=== PATIENT | female | born 1940 | race Caucasian/White ===

== ENCOUNTER 2017-05-16 14:32 | Emergency (ER) | payer MEDICARE, BC ==
--- NOTE | 2017-05-16 16:06 | RAD ---
CHEST TWO VIEW 05/16/17 HISTORY: Cough. COMPARISON: Chest two view 09/15/15. FINDINGS: There are calcified granulomas throughout the lungs. No pneumothorax. There is a nodule in the left l gabrielle base which is no well defined and likely another granuloma. Mild levoscoliosis upper thoracic spine. Moderate vascular calcifications. IMPRESSION: 1. No acute thoracic abnormality. 2. Focal area of nodularity in the left lung base may represent a granuloma. Followup radiograph s in six months is recommended. POS: [facility]
[2017-05-16 16:35] LABS: #Basophils 0.1 thou/uL (0.0-0.2); #Eosinphils 0.7 thou/uL (0.0-0.7); #Lymphocytes 1.6 thou/uL (1.20-3.40); #Monocytes 0.6 thou/uL (0.11-0.59); #Neutrophils 5.7 thou/uL (1.40-6.50); %Basophils 0.7 % (0.0-1.0); %Eosinophils 8.3 % (0.0-10.0); %Lymphocytes 17.9 % (21.0-51.0); %Monocytes 7.2 % (0.0-10.0); %Neutrophils 65.8 % (42.0-75.0); Hemoglobin 14.3 g/dL (12.0-16.0); Mean Corpuscular HGB CONC 31.5 g/dL (32.0-36.0); Mean Corpuscular Hemoglobin 30.5 pg (27.0-31.0); Mean Corpuscular Volume 96.6 fl (81.0-99.0); Mean Platelet Volume 8.5 fL (7.4-10.4); Platelet Count 203 thou/uL (130-400); RBC Distribution Width 14.1 % (11.5-14.5); Red Blood Cell (RBC) Count 4.71 mill/uL (4.20-5.40); White Blood Cell (WBC) Count 8.7 thou/uL (4.8-10.8)
[2017-05-16 16:58] LABS: ALT (SGPT) 49 U/L (8-55); AST (SGOT) 24 U/L (5-34); Albumin 3.4 g/dL (3.4-4.8); Alkaline Phosphatase 54 U/L (40-150); Anion Gap 16 mmol/L (10-20); BUN (Urea Nitrogen) 24 mg/dL (9.8-20.1); Bilirubin, Total 0.2 mg/dL (0.2-1.2); Calc. Creatinine Clearance 0 mL/min (70-130); Calcium 9.1 mg/dL (7.8-10.44); Carbon Dioxide 23 mmol/L (23-31); Chloride 109 mmol/L (98-107); Estimated GFR-MDRD 39; Globulin 3.3 g/dL (2.4-3.5); Glucose 114 mg/dL (83-110); Potassium 3.9 mmol/L (3.5-5.1); Protein, Total 6.7 g/dL (6.0-8.3); Sodium 144 mmol/L (136-145)
[2017-05-16] MEDS ORDERED: Ketorolac Tromethamine 30 MG/ML VIAL ONE (17:04)
[2017-05-16 18:34] LABS: Bilirubin Negative (Negative); Blood, Urine Negative (Negative); Clarity CLEAR (Clear); Glucose, Urine (Dipstick) Negative (Negative); Leukocyte Small (Negative); Nitrite Negative (Negative); Protein, Urine (Dipstick) Trace mg/dL (Neg-Trace); Specific Gravity, Urine 1.024 (1.002-1.036); Urobilinogen 0.2 mg/dL (0.2-1.0)
[2017-05-16 18:36] LABS: Bacteria/HPF None Seen HPF (None Seen); Hyaline Casts/LPF 0-3 HYALINE CAST LPF (0-3 Hyaline); Pathc Cast-AUWi Flag 0.27 (0-2.49); Squamous Epithelial 0-3 HPF (0-3)
[2017-05-16 18:38] LABS: RBC/HPF None Seen HPF (0-3)
== END 2017-05-16 19:04 | disposition home or self-care (01) ==
LOC: ERS 14:32
DX: N39.0 Urinary tract infection, site not specified (principal); Z79.899 Other long term (current) drug therapy
CPT/HCPCS: 71046; 80053; 81003; 81015; 85025; 87086; 87804; 96361; 96374; J1885

== ENCOUNTER 2017-07-20 10:29 | Outpatient (CLI) | payer MEDICARE, BC ==
--- NOTE | 2017-07-20 12:09 | RAD ---
THREE VIEWS LUMBAR SPINE: HISTORY: Acute low back pain without sciatica. TECHNIQUE: AP, lateral, and coned down views of the lumbar spine are obtained. FINDINGS: Images demonstrate five [id number] lumbar vertebrae. Lumbar spine vertebral bodies are unremark able. Disk spaces are well maintained. No evidence of acute fractures or bony lesions seen. IMPRESSION: Normal three views lumbar spine. POS: [facility]
== END 2017-07-20 10:30 | disposition home or self-care (01) ==
LOC: RAD 10:29
PROVIDERS: ATTEND Family Medicine
DX: M54.5 Low back pain (principal)
CPT/HCPCS: 72100

== ENCOUNTER 2017-07-31 14:07 | Outpatient (CLI) | payer MEDICARE, BC | END 2017-07-31 14:08 | disposition home or self-care (01) | LOC: BICMAMMO 14:07 | PROVIDERS: ATTEND Family Medicine | DX: M81.0 Age-related osteoporosis without current pathological fracture (principal) | CPT/HCPCS: 77080 ==

== ENCOUNTER 2017-09-24 09:13 | Emergency (ER) | payer MEDICARE, BC ==
[2017-09-24 10:47] LABS: Bilirubin Negative (Negative); Blood, Urine Negative (Negative); Glucose, Urine (Dipstick) Negative (Negative); Leukocyte Negative (Negative); Nitrite Negative (Negative); Protein, Urine (Dipstick) Negative (Neg-Trace); Urobilinogen 0.2 mg/dL (0.2-1.0)
[2017-09-24 10:48] LABS: Clarity Clear (Clear)
[2017-09-24 10:49] LABS: Specific Gravity, Urine 1.004 (1.002-1.036)
== END 2017-09-24 13:01 | disposition home or self-care (01) ==
LOC: ERS 09:13
DX: R33.9 Retention of urine, unspecified (principal)
CPT/HCPCS: 36416; 51701; 81003; 87086

== ENCOUNTER 2017-11-06 12:05 | Day surgery (SDC) | payer MEDICARE, BC ==
[2017-11-05 13:43] VITALS: BMI 18.3
[~2017-11-06 12:05] MED LIST: Lidocaine 1% PF 5 ML VIAL ONE; Ondansetron HCl/PF 4 MG/2 ML Vial ONE; PHENYLEPHRINE-NS 100 MCG/ML 10 ML SYRINGE ONE; PROPOFOL 200 MG/20 ML VIAL ONE
[2017-11-06] MEDS ORDERED: Heparin 5,000 UNITS/ML VIAL ONE (12:41)
[2017-11-06] MEDS ORDERED: CEFAZOLIN/Water 2 GM/20 ML SYRINGE ONE (12:41)
[2017-11-06] MEDS ORDERED: Fentanyl 100 MCG/2 ML VIAL ONE (12:46)
[2017-11-06] MEDS ORDERED: Gentamicin 80 MG/2 ML VIAL ONE (12:50)
[2017-11-06] MEDS ORDERED: Ophthalmic Irrigation Solution 0 ML ONE (12:50)
[2017-11-06] MEDS ORDERED: Sodium Chloride 0.9% 0 ML ONE (12:50)
[2017-11-06] MEDS ORDERED: Bupivacaine/Epinephrine 0.25% 30 ML VIAL ONE (12:50)
[2017-11-06] MEDS ORDERED: Maxitrol 0.1% Opth Oint 3.5 GM TUBE ONE (12:50)
[2017-11-06] MEDS ORDERED: Bacitracin Zinc Ointment 30 gm TUBE ONE (12:51)
[2017-11-06] MEDS ORDERED: Hydrocortisone Sod Succ/PF 100 mg/2 ml Vial ONE (13:01)
[2017-11-06] MEDS ORDERED: EPINEPHrine 1 MG/ML AMP ONE ×2 (13:36→13:44)
[2017-11-06] MEDS ORDERED: Lidocaine 1% (PF) 30 ML VIAL ONE ×2 (13:36→13:44)
[2017-11-06] MEDS ORDERED: Meperidine HCl/PF 25 MG/ML VIAL ONE (15:05)
[2017-11-06] MEDS ORDERED: Ondansetron HCl/PF 4 MG/2 ML Vial IVP PRN (15:40)
[2017-11-06] MEDS ORDERED: Meperidine HCl/PF 25 MG/ML VIAL IV PRN (15:40)
[2017-11-06] MEDS ORDERED: Promethazine HCl 25 MG/ML VIAL IM/IV PRN (15:40)
[2017-11-06] MEDS ORDERED: HYDROcodone/Acetaminophen 5/325 mg Tablet ONE (16:05)
--- NOTE | 2017-11-09 15:07 | OP ---
DATE OF PROCEDURE: 11/06/2017 PREOPERATIVE DIAGNOSES: 1. Deformity of breast reconstruction. 2. Disproportion of breast reconstruction. PROCEDURE: Bilateral fat grafting of breast reconstructions. PROCEDURE: Following induction of adequate anesthesia, the patient was prepped and draped in usual sterile fashion in supine position. Fat was harvested from her abdomen and allowed to separate. It has been previously infiltrated prior to harvesting. After it started it was decanted and then injected with a series of stab incisions radially around each breast and injected using the microdropler technique. Approximately 100 mL of fat was injected into each breast. The patient tolerated the procedure well. Stab incisions were closed with 5-0 fast gut suture. RUSSEL
== END 2017-11-06 16:48 | disposition home or self-care (01) ==
LOC: SDC 12:05
PROVIDERS: ATTEND Plastic Surgery
PROC: 0HRV37Z Replacement of Bilateral Breast with Autologous Tissue Substitute, Percutaneous Approach (ICD-10-PCS; principal; 2017-11-06)
DX: N65.1 Disproportion of reconstructed breast (principal); Z79.899 Other long term (current) drug therapy
CPT/HCPCS: 96374; A4216; J0171; J1580; J1644; J1720; J2001; J2175; J2405; J2704; J3010; J3370; J3490

== ENCOUNTER 2018-01-14 12:04 | Outpatient (CLI) | payer MEDICARE, BC | END 2018-01-14 12:05 | disposition home or self-care (01) | LOC: BICRAD 12:04 | PROVIDERS: ATTEND Family Medicine | DX: M25.552 Pain in left hip (principal); M25.551 Pain in right hip; M16.11 Unilateral primary osteoarthritis, right hip ==

== ENCOUNTER 2018-06-01 12:12 | Outpatient (CLI) | payer MEDICARE, BC ==
--- NOTE | 2018-06-01 13:39 | RAD ---
RADIOGRAPH LUMBAR SPINE 2 VIEWS: DATE: 06-01-18 HISTORY: 78-year-old female with chronic low back pain. COMPARISON: 07-20-17 FINDINGS: Five lumbar type vertebrae. No scoliosis. Alignment is normal. Moderate disc space narrowing at L4-5. The rest of the disc spaces are maintained. Facet DJD at lower levels. No interval change overall. IMPRESSION: 1. Degenerative disc changes at L4-5. 2. Facet osteoarthrosis at lower levels. 3. No interval change. SILVIA POS: [facility]
--- NOTE | 2018-06-01 13:43 | RAD ---
RADIOGRAPH RIGHT HIP ONE VIEW: 06/01/2018 HISTORY: A 78-year-old female with right hip pain. COMPARISON: 01/14/2018 TECHNIQUE: A single AP view, ordered specifically as a one view study. FINDINGS: Femoral head contour and hip joint space are maintained. No subcapital osteophytes. No fracture. M ild bony hypertrophy of the lateral aspect of the acetabular roof. No subchondral cysts. No destruc tive osseous lesion. No interval change. Mild enthesophytes at the greater trochanter, lateral edge . IMPRESSION: 1. No major pathology identified. 2. Minor findings. 3. No interval change since 01/14/2018. POS: [facility]
== END 2018-06-01 12:13 | disposition home or self-care (01) ==
LOC: BICRAD 12:12
PROVIDERS: ATTEND Internal Medicine Rheumatology
DX: M25.551 Pain in right hip (principal); M54.5 Low back pain; M51.36 Other intervertebral disc degeneration, lumbar region; M47.816 Spondylosis without myelopathy or radiculopathy, lumbar region
CPT/HCPCS: 72100

== ENCOUNTER 2018-06-24 11:59 | Outpatient (CLI) | payer MEDICARE, BC ==
--- NOTE | 2018-06-24 13:02 | RAD ---
RIGHT HIP TWO VIEWS: History: Right hip pain. Right buttock pain. FINDINGS/IMPRESSION: No fracture, dislocation, or bony destruction is seen. Mild degenerative changes are noted. POS: [facility]
--- NOTE | 2018-06-24 14:18 | RAD ---
LUMBAR SPINE 2 VIEWS: Date: 06/24/18 HISTORY: Low back pain. FINDINGS/IMPRESSION: Comparison made with exam of 06/01/18. No acute fracture or subluxation is seen. Mild degenerative changes are again noted. POS: [facility]
== END 2018-06-24 12:00 | disposition home or self-care (01) ==
LOC: BICRAD 11:59
PROVIDERS: ATTEND Family Medicine
DX: S39.92XA Unspecified injury of lower back, initial encounter (principal); M79.18 Myalgia, other site; M47.816 Spondylosis without myelopathy or radiculopathy, lumbar region; M16.11 Unilateral primary osteoarthritis, right hip
CPT/HCPCS: 72100

== ENCOUNTER 2018-07-02 13:12 | Outpatient (CLI) | payer MEDICARE, BC ==
--- NOTE | 2018-07-02 13:55 | CT ---
HEAD CT WITHOUT CONTRAST: History: Traumatic head injury. Fall. Comparison: None. FINDINGS: No parenchymal hemorrhage or extraaxial hematoma. No midline shift. Basilar cisterns are patent. Brai n volume age appropriate. Cortical connolly white matter differentiation is preserved. No evidence of hydrocephalus. There are chronic small vessel ischemic changes of white matter. Adequate aeration of the sinuses and mastoid air cells. Calvarium is intact. IMPRESSION: No intracranial post-traumatic sequellae. POS: [facility]
== END 2018-07-02 13:13 | disposition home or self-care (01) ==
LOC: BICCT 13:12
PROVIDERS: ATTEND Family Medicine
DX: S09.90XD Unspecified injury of head, subsequent encounter (principal)
CPT/HCPCS: 70450

== ENCOUNTER 2018-08-02 14:20 | Outpatient (CLI) | payer MEDICARE, BC ==
--- NOTE | 2018-08-02 15:50 | MRI ---
MRI LUMBAR SPINE WITHOUT CONTRAST: Multiplanar, multisequential imaging lumbar spine obtained. INDICATION: Low back pain. Lumbar radiculopathy to the lower extremities. FINDINGS: Lumbar vertebrae maintain normal height and alignment. Vertebral body signal appears normal. There is evidence of edema seen in lateral aspect of the sacral alae bilaterally seen on sagittal jose ges only. This raises the possibility of bilateral sacral insufficiency fractures. This is suboptim ally evaluated on this study. Disk spaces are preserved. No evidence of significant disk bulge at T12-L1 or L1-2. At L2-3, mild disk bugle flattens the thecal sac. There is facet hypertrophy. Mild central canal st enosis. At L3-4, broad-based disk bulge and facet an ligamentous hypertrophy results in mild to moderate cent ral canal stenosis. At L4-5, there is a broad-based disk bulge with small focal protrusion compressing the thecal sac. F acet and ligamentous hypertrophy. Moderate central canal stenosis. At L5-S1, mild disk bulge abuts the anterior thecal sac. Mild facet hypertrophy. Very mild central canal stenosis. IMPRESSION: 1. Moderate central canal stenosis at L4-5 with mild to moderate central canal stenosis at L3-4 as d escribed above. 2. Sagittal images show evidence of bilateral sacral edema seen on the lateral images on sagittal pl ane. This raises the possibility of sacral injury or bilateral sacral insufficiency fractures. Furt her evaluation with MRI of pelvis is recommended to better evaluate the sacrum. POS: [facility]
== END 2018-08-02 14:21 | disposition home or self-care (01) ==
LOC: BICMRI 14:20
PROVIDERS: ATTEND Family Medicine
DX: M54.16 Radiculopathy, lumbar region (principal); M48.061 Spinal stenosis, lumbar region without neurogenic claudication; R60.0 Localized edema
CPT/HCPCS: 72148

== ENCOUNTER 2018-08-16 11:12 | Outpatient (CLI) | payer MEDICARE, BC ==
--- NOTE | 2018-08-16 11:44 | RAD ---
CERVICAL SPINE 4 VIEWS: Date: 08/16/18 HISTORY: Spondylosis of cervical region without myelopathy or radiculopathy. Fall in early July with pain. FINDINGS: Extensive multilevel disc osteophytosis and facet arthrosis. No prevertebral soft tissue swelling. Th ere is no open-mouth view. There appears to be some very mild, approximately 0.2 cm anterolisthesis o f C7 on T1, but no abnormal translation between flexion and extension. IMPRESSION: Extensive cervical spondylosis. Mild anterolisthesis of C7 on T1, but no evidence for abnormal transl ation between flexion and extension. If there is clinical concern for acute cervical spine injury, follow-up CT scan should be considered. POS: [facility]
== END 2018-08-16 11:13 | disposition home or self-care (01) ==
LOC: BICRAD 11:12
PROVIDERS: ATTEND Specialist
DX: M84.48XA Pathological fracture, other site, initial encounter for fracture (principal); M47.22 Other spondylosis with radiculopathy, cervical region; M43.13 Spondylolisthesis, cervicothoracic region
CPT/HCPCS: 72050

== ENCOUNTER 2018-08-19 13:34 | Outpatient (CLI) | payer MEDICARE, BC ==
--- NOTE | 2018-08-19 14:26 | MRI ---
Cervical spine MRI without contrast: 08/19/2018 COMPARISON: None HISTORY: Cervical radiculopathy and neck pain TECHNIQUE: Multiplanar multisequence MR imaging of the cervical spine provided without contrast FINDINGS: The sagittal STIR imaging demonstrates no focal area of osseous marrow edema aside from mil d degenerative edematous endplate change to the right of midline at C5-6. C2-3: Mild bilateral facet hypertrophy. No significant central canal or neural foraminal stenosis. C3-4: Mild disc bulge with partial effacement of ventral thecal sac and mild central canal stenosis. No significant neural foraminal stenosis on the left. Probable mild right neural foraminal stenosis on the basis of uncovertebral osteophyte formation. C3-4: No central canal stenosis. Mild left neural foraminal stenosis on the basis of facet and uncove rtebral osteophyte formation. No right neural foraminal stenosis. C5-6: Degenerative endplate changes are present with disc space narrowing, disc desiccation, and ante rior osteophyte formation. There is disc bulge effacing the ventral thecal sac with moderate central canal stenosis. There is bilateral facet and uncovertebral osteophyte formation, right greate r than left. Moderate bilateral neural foraminal stenosis, right greater than left. C6-7: There is disc space narrowing disc desiccation and minimal disc bulge with mild central canal s tenosis. Bilateral facet and uncovertebral osteophyte formation, left greater than right. Moderate left and mild right neural foraminal stenosis. C7-T1: No significant central canal or neural foraminal stenosis. The imaged spinal cord demonstrates normal signal intensity. IMPRESSION: Cervical spine degenerative change as described above.
--- NOTE | 2018-08-19 15:22 | MRI ---
EXAM: CT of the chest with contrast HISTORY: Dizziness and diaphoresis; hypotension COMPARISON: None TECHNIQUE: Multiple contiguous axial images were obtained in a CT the chest with contrast. Coronal re formats were performed. FINDINGS: HEART: Normal in size without focal cardiac abnormality MEDIASTINUM: No hilar or mediastinal lymphadenopathy. Atherosclerotic calcifications are seen in the aorta and coronary arteries. There is a small hiatal hernia. LUNGS: No focal infiltrates, nodules, or masses. PLEURAL SPACE: No pneumothorax or pleural effusion. CHEST WALL SOFT TISSUES: Unremarkable OSSEOUS STRUCTURES: Degenerative changes are seen in the spine. VISUALIZED SUBDIAPHRAGMATIC STRUCTURES: Unremarkable. The patient is status post cholecystectomy. IMPRESSION: 1. No evidence of acute intrathoracic abnormality. 2. Small hiatal hernia
--- NOTE | 2018-08-19 15:50 | MRI ---
MRI OF THE PELVIS WITHOUT IV CONTRAST: INDICATION: History of fall with right hip pain. COMPARISON: CT of the pelvis dated 07/25/2014. FINDINGS: There is a 1.2 x 3.5 cm T2 hyperintense, T1 isointense blind-ending pouch that protrudes from the lef t anterolateral margin of the anus between the rectal wall and vagina. This was present on a compari son CT examination dated 07/25/2014. No acute fracture is evident. No definite enlarged lymph nodes are noted. There is a mild amount of retained stool within the colon. A small amount of fluid is seen overlying the right greater trochanter. The right gluteus medius and minimus tendons are normal appearing. The right hamstring and rectus femoris origin appears within normal limits. The visualized sciatic nerve appears within normal limits. IMPRESSION: 1. Mild trochanteric bursitis. 2. Fluid signal intensity pouch protruding from the left anterolateral margin of the rectum may refl ect a mildly prominent anal cyst or duct. There appears to be some proteinaceous material seen on th e T1 images related to this. A partially healed perianal fistula could also produce a similar appear ance. A congenital cyst (epidermoid) of the rectum is also a differential consideration. This lesio n appears relatively stable in appearance to a comparison CT from 2014. Recommend correlation for an y symptoms in and around the rectal and anal region. 3. No acute fracture demonstrated. POS: [facility]
== END 2018-08-19 13:35 | disposition home or self-care (01) ==
LOC: BICMRI 13:34
PROVIDERS: ATTEND Family Medicine
DX: M47.22 Other spondylosis with radiculopathy, cervical region (principal); M25.551 Pain in right hip; M84.48XA Pathological fracture, other site, initial encounter for fracture; M70.61 Trochanteric bursitis, right hip
CPT/HCPCS: 72141; 72195

== ENCOUNTER 2019-03-23 06:53 | Outpatient (CLI) | payer MEDICARE, BC ==
--- NOTE | 2019-03-27 16:13 | EKG ---
Test Reason : Blood Pressure : / mmHG Vent. Rate : 099 BPM Atrial Rate : 099 BPM P-R Int : 186 ms QRS Dur : 074 ms QT Int : 358 ms P-R-T Axes : 069 003 081 degrees QTc Int : 459 ms Normal sinus rhythm Possible Left atrial enlargement Cannot rule out Anteroseptal infarct , age undetermined Abnormal ECG When compared with ECG of 22-AUG-2013 06:35, Vent. rate has increased BY 50 BPM Minimal criteria for Anteroseptal infarct are now Present Questionable change in initial forces of Anterolateral leads Confirmed by DR. Kenny SNYDER ([id number]) on 03/27/2019 4:12:39 PM Referred By: ABDIRASHID Confirmed By:DR. Kenny SNYDER
== END 2019-03-23 06:54 | disposition home or self-care (01) ==
LOC: LABBT 06:53
PROVIDERS: ATTEND Neurological Surgery
DX: Z01.818 Encounter for other preprocedural examination (principal); M54.16 Radiculopathy, lumbar region
CPT/HCPCS: 93005; 93010

== ENCOUNTER 2019-06-06 22:07 | Observation (INO) | payer MEDICARE, BC ==
--- NOTE | 2019-06-06 22:48 | RAD ---
XR Chest 1 View Portable HISTORY: Chest pain COMPARISON: None. FINDINGS: Heart size and mediastinum are within normal limits. The lungs are clear of infiltrates. Jairo simone appear demineralized. IMPRESSION: No active intrathoracic disease.
[2019-06-06 22:51] LABS: #Basophils 0.1 thou/uL (0.0-0.2); #Eosinphils 0.1 thou/uL (0.0-0.7); #Lymphocytes 2.6 thou/uL (1.20-3.40); #Monocytes 0.8 thou/uL (0.11-0.59); #Neutrophils 7.2 thou/uL (1.40-6.50); %Basophils 1.3 % (0.0-1.0); %Monocytes 7.3 % (0.0-10.0); %Neutrophils 66.5 % (42.0-75.0); Hemoglobin 13.2 g/dL (12.0-16.0); Mean Corpuscular HGB CONC 32.2 g/dL (32.0-36.0); Mean Corpuscular Hemoglobin 31.7 pg (27.0-31.0); Mean Corpuscular Volume 98.4 fL (78.0-98.0); Mean Platelet Volume 8.2 fL (7.4-10.4); Platelet Count 284 thou/uL (130-400); RBC Distribution Width 12.9 % (11.5-14.5); Red Blood Cell (RBC) Count 4.15 mill/uL (4.20-5.40); White Blood Cell (WBC) Count 10.8 thou/uL (4.8-10.8)
[2019-06-06 23:11] LABS: ALT (SGPT) 63 U/L (8-55); AST (SGOT) 35 U/L (5-34); Albumin 3.7 g/dL (3.4-4.8); Alkaline Phosphatase 97 U/L (40-110); Anion Gap 10 mmol/L (10-20); BUN (Urea Nitrogen) 39 mg/dL (9.8-20.1); Bilirubin, Total 0.3 mg/dL (0.2-1.2); Calc. Creatinine Clearance 0 mL/min (70-130); Calcium 9.5 mg/dL (7.8-10.44); Carbon Dioxide 27 mmol/L (23-31); Chloride 104 mmol/L (98-107); Estimated GFR-MDRD 27; Globulin 3.4 g/dL (2.4-3.5); Glucose 134 mg/dL (83-110); Potassium 4.3 mmol/L (3.5-5.1); Protein, Total 7.1 g/dL (6.0-8.3); Sodium 137 mmol/L (136-145)
[2019-06-06 23:40] LABS: CKMB 1.5 ng/mL (0-6.6)
[2019-06-06] MEDS ORDERED: Aspirin Chewable 81 MG TAB ONE (23:46)
[2019-06-07] MEDS ORDERED: Ondansetron PF 4 MG/2 ML Vial IVP PRN ×2 (01:22→06:34)
[2019-06-07] MEDS ORDERED: Ondansetron ODT 4 MG TAB SL PRN (01:22)
[2019-06-07 02:22] VITALS: BMI 17.2
[2019-06-07 02:33] LABS: Troponin I 0.049 ng/mL (< 0.028)
[2019-06-07 05:19] LABS: Troponin I 0.043 ng/mL (< 0.028)
[2019-06-07] MEDS ORDERED: Nitroglycerin 0.4 MG TAB (25 Tab Bottle) PO PRN (06:25)
[2019-06-07] MEDS ORDERED: Dextrose 5 %-0.45 % NaCl 1,000 ML IV SCH (06:30)
[2019-06-07] MEDS ORDERED: Acetaminophen 325 MG TAB PO PRN (06:34)
[2019-06-07] MEDS ORDERED: Calcium Carbonate 500 MG ChewTAB PO PRN (06:34)
[2019-06-07] MEDS ORDERED: Ondansetron ODT 4 MG TAB PO PRN (06:34)
--- NOTE | 2019-06-07 07:52 | HP ---
PRIMARY CARE PHYSICIAN: Patricia Quezada MD CHIEF COMPLAINT: Chest discomfort. HISTORY OF PRESENT ILLNESS: The patient is a 79-year-old female with hypertension, presented to the emergency room with chest discomfort. The chest discomfort started approximately 12 hours ago. It was substernal, pressure-like, along with some nausea and lightheadedness. She denies any aggravating or relieving factor. The pain resolved prior to arrival to the emergency room. She denies recent immobilization, travel, fever, chills, or syncope. The patient is scheduled for lumbar surgery on June 08. She denies any cough, wheezing, orthopnea, or paroxysmal nocturnal dyspnea. In the emergency room, her initial vital signs showed temperature 98.2, respirations of 19, pulse rate of 86 with a blood pressure of 136/107 with O2 saturation of 97% on room air. EKG showed sinus rhythm with left ventricular hypertrophy and left axis deviation. She received IV fluids in the emergency room. She received aspirin by EMS. PAST MEDICAL HISTORY: 1. Hypertension. 2. Hyperlipidemia. 3. Tachyarrhythmias. 4. History of collagenous colitis. 5. History of falls. 6. Generalized tremors. 7. Chronic insomnia. 8. History of trochanteric bursitis. 9. Osteoporosis. PAST SURGICAL HISTORY: 1. Tonsillectomy at age of 7. 2. Partial hysterectomy in 1964. 3. Bilateral oophorectomy in 1971. 4. Breast implant in 1973 with an implant change in 1981. 5. Bladder repair x2. 6. Breast reconstruction in 2018. ALLERGIES: THE PATIENT IS ALLERGIC TO ADHESIVES. CURRENT HOME MEDICATIONS: 1. Amitriptyline 25 mg at bedtime. 2. Vitamin D3 of 400 units daily. 3. Vitamin B12 of 1000 mcg daily. 4. Estrogen 1.25 mg daily. 5. Folic acid daily. 6. Flagyl application daily. 7. Multivitamin one tablet daily. 8. Protonix 40 mg daily. 9. Inderal 20 mg b.i.d. 10. Simvastatin 10 mg at bedtime. 11. Tizanidine 2 mg b.i.d. 12. Ambien as needed. SOCIAL HISTORY: The patient currently lives at home with her family. She denies current use of smoking, alcohol, or drug use. She quit smoking in 2006. She is . She makes her own decision with the help of her family. FAMILY HISTORY: Colon cancer in a mother. REVIEW OF SYSTEMS: All other review of systems was reviewed and was found negative. PHYSICAL EXAMINATION: VITAL SIGNS: As discussed above. GENERAL: A 79-year-old female, in no apparent distress. Denies any chest discomfort at this time. HEENT: Head; atraumatic and normocephalic. Sclerae are anicteric. Moist mucous membranes. No oral lesion. NECK: Supple. No JVD appreciated. No carotid bruit. LUNGS: Clear to auscultation bilaterally. No wheezing, rales, or rhonchi. HEART: S1 and S2 present. Regular rate and rhythm. No rubs or gallops. ABDOMEN: Soft, nontender. Bowel sounds present. No rebound or guarding. No costovertebral angle tenderness. EXTREMITIES: No edema or calf tenderness. NEUROLOGY: Grossly nonfocal. Moves all 4 extremities. PSYCHIATRY: Alert, awake, and oriented x3. Normal affect. LYMPH NODES: No palpable lymph nodes in the neck. PERIPHERAL VASCULAR: Radial pulses palpable bilaterally. MUSCULOSKELETAL: No joint swelling or tenderness. LABORATORY FINDINGS: CBC showed WBC 10.8 with hemoglobin 13.2, hematocrit 40.8, and platelet count of 284. Chemistry showed sodium 137, potassium 4.3, chloride 104, bicarb 27, BUN 39, and creatinine 1.83. AST of 35, ALT of 63. Troponin of 0.050 with normal CK-MB. Lipase was 21. IMAGING STUDIES: EKG by my review as discussed above. Chest x-ray by my review was negative for infiltrate or edema. IMPRESSION: 1. Chest discomfort along with lightheadedness and nausea, rule out acute coronary syndrome. 2. Elevated troponins probably secondary to demand ischemia. 3. Acute kidney injury on chronic kidney disease, stage 3, probably secondary to poor oral intake. 4. Slightly abnormal LFTs of unclear etiology. 5. Degenerative joint disease. 6. Tachyarrhythmia, on beta-blockers. 7. Hypertension. 8. Hyperlipidemia. 9. Generalized tremors. 10. Chronic insomnia. 11. Osteoporosis. PLAN: The patient will be monitored in the telemetry unit as observation. A stress test will be obtained. The patient is scheduled for lumbar surgery tomorrow. She received aspirin in the emergency room. We will notify Surgical Service. We will resume her home medications. The patient understands the above plan of care. Job ID: [id number]
[2019-06-07] MEDS: tiZANidine HCl 4 MG TAB PO SCH ×2 (08:41→20:23)
[2019-06-07] MEDS: Propranolol 10 MG TAB PO SCH (08:48)
--- NOTE | 2019-06-07 14:03 | NM ---
EXAM: Nuclear medicine cardiac perfusion examination with rest only HISTORY: Chest pain TECHNIQUE: Rest only images were obtained. The patient was unable to perform the stress images secondary to hypo tension. Rest images: 9.4 mCi technetium 99m sestamibi COMPARISON: None FINDINGS: Tomographic images: No perfusion defects. IMPRESSION: No perfusion defects seen at rest
[2019-06-07 16:42] LABS: ALT (SGPT) 44 U/L (8-55); AST (SGOT) 25 U/L (5-34); Alkaline Phosphatase 79 U/L (40-110); Anion Gap 10 mmol/L (10-20); BUN (Urea Nitrogen) 22 mg/dL (9.8-20.1); Bilirubin, Total 0.3 mg/dL (0.2-1.2); Calc. Creatinine Clearance 26 mL/min (70-130); Calcium 7.9 mg/dL (7.8-10.44); Carbon Dioxide 25 mmol/L (23-31); Chloride 107 mmol/L (98-107); Estimated GFR-MDRD 45; Glucose 117 mg/dL (83-110); Potassium 4.7 mmol/L (3.5-5.1); Sodium 137 mmol/L (136-145)
[2019-06-07] MEDS: Dextrose 5 % And 0.9 % NaCl 1,000 ML IV SCH (19:40)
[2019-06-08 05:14] LABS: ALT (SGPT) 49 U/L (8-55); AST (SGOT) 29 U/L (5-34); Albumin 3.1 g/dL (3.4-4.8); Alkaline Phosphatase 86 U/L (40-110); Anion Gap 12 mmol/L (10-20); BUN (Urea Nitrogen) 16 mg/dL (9.8-20.1); Bilirubin, Total 0.2 mg/dL (0.2-1.2); Calc. Creatinine Clearance 31 mL/min (70-130); Calcium 8.1 mg/dL (7.8-10.44); Carbon Dioxide 21 mmol/L (23-31); Chloride 111 mmol/L (98-107); Estimated GFR-MDRD 54; Globulin 3.1 g/dL (2.4-3.5); Glucose 88 mg/dL (83-110); Magnesium 1.7 mg/dL (1.6-2.6); Potassium 4.6 mmol/L (3.5-5.1); Protein, Total 6.2 g/dL (6.0-8.3); Sodium 139 mmol/L (136-145)
[2019-06-08] MEDS: Dextrose 5 % And 0.9 % NaCl 1,000 ML IV SCH ×2 (08:41→22:32)
[2019-06-08] MEDS: tiZANidine HCl 4 MG TAB PO SCH ×2 (08:42→20:28)
[2019-06-08] MEDS ORDERED: Sodium Chloride 0.9% 1,000 ML IV SCH (09:15)
[2019-06-08] MEDS ORDERED: Communication Order-Pharmacy FS SCH (09:15)
--- NOTE | 2019-06-08 09:26 | PDOC.HOSPP ---
- Subjective Encounter Date: 06/08/19 Encounter Time: 09:20 Subjective: f/u for CP and hypotension. Unable to complete nuclear stress test due to hypotension. Pt also orthostatic receiving IVF's currently. Plan for heart cath this am. - Objective Vital Signs & Weight: Vital Signs (12 hours) Temp Pulse Resp BP BP Pulse Ox 06/08/19 07:40 97.3 F L 83 16 137/65 97 06/08/19 05:30 98.5 F 77 16 153/67 H 95 06/07/19 23:00 98.4 F 81 20 92/54 L 100 Weight Admit Weight 94 lb 3.2 oz Weight 94 lb 3.2 oz I&O: 06/07/19 06/08/19 06/09/19 06:59 06:59 06:59 Intake Total 2390 Balance 2390 Result Diagrams: 06/06/19 22:44 06/08/19 04:25 Additional Labs: Laboratory Tests 06/06/19 06/06/19 06/07/19 22:44 22:44 01:37 Creatinine 1.83 H Troponin I 0.050 H 0.049 H TSH 3rd Generation 06/07/19 06/07/19 06/08/19 04:31 16:03 04:25 Creatinine 1.17 H Troponin I 0.043 H TSH 3rd Generation [id number] Radiology Reviewed by me: Yes (SPECT cardiac image - no perfusion defect at rest ) EKG Reviewed by me: Yes (Tele - SR) Hospitalist ROS - Medication Medications: Active Medications Generic Name Dose Route Start Last Admin Trade Name Freq PRN Reason Stop Dose Admin Acetaminophen 650 mg 06/07/19 06:34 06/07/19 20:27 Tylenol PO 650 mg Q4H PRN Administration Headache/Fever/Mild Pain (1-3) Calcium Carbonate 1,000 mg 06/07/19 06:34 06/07/19 21:51 Tums PO 1,000 mg Q4H PRN Administration Heartburn or Indigestion Dextrose/Sodium Chloride 1,000 mls @ 75 mls/hr 06/07/19 18:30 06/08/19 08:41 D5 0.9% Ns IV 1,000 mls .[id number] DESMOND Administration Pantoprazole Sodium 40 mg 06/07/19 09:00 06/08/19 08:42 Protonix PO 40 mg DAILY DESMOND Administration Propranolol HCl 20 mg 06/07/19 09:00 06/07/19 08:48 Inderal PO Not Given BID DESMOND Tizanidine HCl 2 mg 06/07/19 09:00 06/08/19 08:42 Zanaflex PO 2 mg BID DESMOND Administration - Exam General Appearance: NAD, awake alert Eye: PERRL, anicteric sclera ENT: normocephalic atraumatic, no oropharyngeal lesions Neck: supple, symmetric, no JVD, no thyromegaly Heart: RRR, no murmur, no gallops, no rubs, normal peripheral pulses Respiratory: CTAB, no wheezes, no rales, no ronchi Gastrointestinal: soft, non-tender, non-distended, normal bowel sounds Extremities: no cyanosis, no clubbing, no edema Skin: normal turgor, no lesions Neurological: cranial nerve grossly intact, no new deficit Musculoskeletal: normal tone, normal strength Psychiatric: normal affect, A&O x 3 Hosp A/P (1) Chest pain Code(s): R07.9 - CHEST PAIN, UNSPECIFIED Status: Acute Plan: Concern for angina given elevated troponin and hypotension, plan for cardiac cath today, continue ASA (2) NSTEMI (non-ST elevated myocardial infarction) Code(s): I21.4 - NON-ST ELEVATION (NSTEMI) MYOCARDIAL INFARCTION Status: Acute Plan: ? demand ischemia Type II, heart cath this am (3) PIPER (acute kidney injury) Code(s): N17.9 - ACUTE KIDNEY FAILURE, UNSPECIFIED Status: Acute Plan: Improved with IVF's, avoid nephrotoxic meds (4) Orthostatic hypotension Code(s): I95.1 - ORTHOSTATIC HYPOTENSION Status: Acute Plan: Likely iatrogenic in combination with dehydration, continue IVF's - Plan plan discussed w/ family, out of bed/ambulate, DVT proph w/SCDs Stable currently Plan for heart cath this am Hold BP meds Continue IVF's Hold lumbar surgery until cardiac work up completed AM lab: BMP
--- NOTE | 2019-06-08 11:41 | CON ---
DATE OF CONSULTATION: REASON FOR CONSULTATION: Chest pain and presyncope. HISTORY OF PRESENT ILLNESS: Ms. Nguyen is a 79-year-old woman, whom I saw and evaluated in December of 2018 for a lower extremity pain. The patient at that time underwent a lower extremity arterial duplex and was not found to have significant vascular disease. She has not been seen or evaluated since that time. She recently presented with chest pain. States it lasts for seconds to minutes. She did have associated presyncope. Her daughter, who was in the other room, heard her fall. No nausea, vomiting, or other associated symptoms were present. CURRENT MEDICATIONS: Include estrogen, pantoprazole, calcitonin, multivitamin, simvastatin, folic acid, vitamin B, amitriptyline, minocycline, Ambien, and propranolol. PAST MEDICAL HISTORY: Hyperlipidemia, collagenous colitis, tremors, insomnia, and osteoporosis. PAST SURGICAL HISTORY: Breast surgery, bladder surgery, neck surgery, appendectomy, and hysterectomy. REVIEW OF SYSTEMS: A 10-point review of systems is reviewed and as above, otherwise negative. PHYSICAL EXAMINATION: GENERAL: Patient is a pleasant woman, who is in no acute distress. The patient appears their stated age. VITAL SIGNS: Blood pressure 153/67, pulse 83, and temperature 97.3. NEUROLOGIC: The patient is alert and oriented x3 with no focal neurologic deficits. HEENT: Sclerae without icterus. Mouth has moist mucous membranes with normal pallor. NECK: No JVD. Carotid upstroke brisk. No bruits bilaterally. LUNGS: Clear to auscultation with unlabored respirations. BACK: No scoliosis or kyphosis. CARDIAC: Regular rate and rhythm with normal S1 and S2. No S3 or S4 noted. No significant rubs, murmurs, thrills, or gallops noted throughout the precordium. PMI is not displaced. There is no parasternal heave. ABDOMEN: Soft, nontender, nondistended. No peritoneal signs present. No hepatosplenomegaly. No abnormal striae. EXTREMITIES: 2+ femoral and 2+ dorsalis pedis pulses. No cyanosis, clubbing, or edema. SKIN: No gross abnormalities. LABORATORY DATA: Troponin in the indeterminate range estimated at 0.049. Initial creatinine 1.83, now down to 0.99. EKG; normal sinus rhythm, normal EKG. IMPRESSION: 1. Chest pressure. 2. Risk factors for coronary artery disease. 3. Preoperative clearance. RECOMMENDATIONS: Ms. Nguyen did undergo a noninvasive stress study and could not complete the 2nd part due to significant hypotension. I did discuss with the patient either repeating the study or proceeding with coronary angiography. Given the above, she agrees to proceed with coronary angiography. I discussed procedure in full detail with Ms. Nguyen. Risks included, not limited to the following: , stroke, NH, need for emergency surgery, loss of limb, bleeding, and infection, as well as a reaction to the dye causing kidney failure and needing long-term dialysis. I also discussed the risks of PCI to include all of the above including coronary dissection and perforation in addition to acute stent thrombosis and restenosis. All questions were answered. Given the above, the patient agreed to proceed with above procedure. I also discussed drug coated versus nondrug stent placement. There were no contraindications to drug coated stent placement. We will proceed if needed. Job ID: [id number]
[2019-06-08] MEDS ORDERED: Zolpidem Tartrate 5 MG TAB PO PRN (15:36)
[2019-06-08] MEDS: metroNIDAZOLE 45 GM TUBE TOP SCH (20:29)
[2019-06-08] MEDS ORDERED: Amitriptyline HCl 25 MG TAB PO SCH (21:00)
[2019-06-08] MEDS ORDERED: Simvastatin 5 MG TAB PO SCH (21:00)
[2019-06-09] MEDS ORDERED: Sodium Chloride 0.9% 1,000 ML IV SCH ×2 (00:01→08:30)
[2019-06-09 05:27] LABS: Cardiac Risk 5.9 (Less than 4.5)
[2019-06-09] MEDS ORDERED: Lidocaine 1% (PF) 30 ML VIAL ONE (07:23)
[2019-06-09] MEDS ORDERED: Heparin (Artline) 1,000 ML ONE (07:23)
[2019-06-09] MEDS ORDERED: Fentanyl 100 MCG/2 ML VIAL ONE (07:51)
[2019-06-09] MEDS ORDERED: Midazolam HCl 2 mg/2 ml Vial ONE (07:52)
[2019-06-09] MEDS ORDERED: Verapamil 5 MG/2 ML VIAL ONE (07:52)
[2019-06-09] MEDS ORDERED: Nitroglycerin 100MG/250ML BOT 0 ML ONE (07:52)
[2019-06-09] MEDS ORDERED: Heparin 10,000 UNITS/1 ML VIAL ONE (07:52)
[2019-06-09] MEDS ORDERED: Acetaminophen/Codeine 30-300mg Tablet PO PRN ×2 (08:25)
[2019-06-09] MEDS ORDERED: Nitroglycerin 0.4 MG TAB (25 Tab Bottle) SL PRN (08:25)
[2019-06-09] MEDS ORDERED: Sodium Chloride 0.9% 200 ML IV PRN (08:25)
[2019-06-09] MEDS ORDERED: Folic Acid 1 MG TAB PO SCH (09:00)
[2019-06-09] MEDS ORDERED: Cholecalciferol (Vitamin D3) 400 UNITS TAB PO SCH (09:00)
[2019-06-09] MEDS ORDERED: Multivit, Therapeutic 1 TAB PO SCH (09:00)
[2019-06-09] MEDS ORDERED: Non-Formulary Item 1 EACH (Glucosam/Chondr-Msm1/D3/C/Mang [Glucosamine Chondroitin Comple PO SCH (09:00)
[2019-06-09] MEDS ORDERED: TESTOSTERONE PO SCH (09:00)
[2019-06-09] MEDS ORDERED: ESTROGEN ESTER PO SCH (09:00)
[2019-06-09] MEDS ORDERED: Cyanocobalamin (Vitamin B-12) 1,000 MCG TAB PO SCH (09:00)
[2019-06-09] MEDS: tiZANidine HCl 4 MG TAB PO SCH (09:43)
[2019-06-09] MEDS: Propranolol 10 MG TAB PO SCH (09:43)
[2019-06-09] MEDS: metroNIDAZOLE 45 GM TUBE TOP SCH (09:43)
[2019-06-09] MEDS: Dextrose 5 % And 0.9 % NaCl 1,000 ML IV SCH (10:12)
[2019-06-09 12:38] VITALS: BP 101/54; TEMP 97.7
[2019-06-09] MEDS ORDERED: Iopamidol 370 76% 100 ML VIAL ONE (14:00)
--- NOTE | 2019-06-09 19:07 | DIS ---
DATE OF ADMISSION: 06/07/2019 DATE OF DISCHARGE: 06/09/2019 DISCHARGE DIAGNOSES: 1. Chest pain, questionable coronary vasospasm, resolved. 2. Coronary artery disease, minimal. 3. Non-ST elevation myocardial infarction, type 2 secondary to demand ischemia and hypertension. 4. Acute kidney injury, resolved. 5. Orthostatic hypotension, resolved. CONSULTATIONS: Dr. Thompson with Cardiology Service. PERTINENT LABORATORY AND X-RAY FINDINGS: Creatinine ranged between 0.99 to 1.83. Estimated GFR ranged between 27 to 54. Magnesium level 1.7. Troponin I ranged between 0.043 to 0.050. Total cholesterol 199, triglycerides 105, HDL 34, and LDL 144. TSH 2.57. Portable chest x-ray dated 06/06/2019, showed no acute cardiopulmonary process. Cardiolite perfusion scan dated 06/07/2019, showed no perfusion defects on resting imaging. 2D transthoracic echocardiogram dated 06/08/2019, showed ejection fraction of 55% to 60%. Diastolic dysfunction. Redundant mitral valve leaflets without prolapse. Cardiac catheterization dated 06/09/2019, showed minimal coronary artery disease. HOSPITAL COURSE: The patient was observed on the telemetry unit after initially presenting with chest pain and hypertension. The patient underwent serial cardiac biomarkers, which were elevated x3. The patient proceeded to cardiac SPECT perfusion scan showing negative findings on resting images; however, the patient developed hypotensive episode, which precluded continuation of the stress test. Due to patient's elevated troponins and concern for underlying cardiac ischemia, the patient underwent cardiac catheterization on 06/09/2019, showing minimal coronary artery disease. Recommendations are to continue aspirin 81 mg daily and simvastatin 5 mg at bedtime. The patient remained clinically stable during the hospital course, tolerating regular oral intake with current stable vital signs. I have examined the patient at the time of discharge and discussed followup instructions. The patient verbalized understanding and in agreement and ready for discharge on 06/09/2019. DISCHARGE MEDICATIONS: 1. Enteric-coated aspirin 81 mg p.o. daily. 2. Amitriptyline 25 mg p.o. at bedtime. 3. Vitamin D3 of 400 units p.o. daily. 4. Vitamin B12 of 1000 mcg p.o. daily. 5. Estrogen/testosterone 1.25 mg/2.5 mg one tablet p.o. daily. 6. Glucosamine one tablet p.o. daily. 7. Folic acid 0.4 mg p.o. daily. 8. Metronidazole one application topically b.i.d. p.r.n. 9. Multivitamin one tablet p.o. daily. 10. Protonix 40 mg p.o. daily. 11. Propranolol 20 mg p.o. b.i.d. 12. Simvastatin 10 mg p.o. at bedtime. 13. Tizanidine 2 mg p.o. b.i.d. p.r.n. 14. Ambien 10 mg p.o. at bedtime p.r.n. FOLLOWUP: The patient may follow up with her primary care provider, Dr. Patricia Quezada, within 7 days of discharge. CONDITION ON DISCHARGE: Stable. ACTIVITY: Ad-nicole. DIET: Heart healthy. CODE STATUS: Full. DISPOSITION: Home on 06/09/2019. Job ID: [id number]
== END 2019-06-09 15:37 | disposition home or self-care (01) ==
LOC: ERS 22:07 → 2SW 06-07 01:21
PROVIDERS: ADMIT Internal Medicine; ATTEND Internal Medicine
PROC: 4A023N7 Measurement of Cardiac Sampling and Pressure, Left Heart, Percutaneous Approach (ICD-10-PCS; principal; 2019-06-09)
PROC: B2111ZZ Fluoroscopy of Multiple Coronary Arteries using Low Osmolar Contrast (ICD-10-PCS; 2019-06-09)
DX: I25.10 Atherosclerotic heart disease of native coronary artery without angina pectoris (principal); I12.9 Hypertensive chronic kidney disease with stage 1 through stage 4 chronic kidney disease, or unspecified chronic kidney disease; N18.3 Chronic kidney disease, stage 3 (moderate); N17.9 Acute kidney failure, unspecified; I21.A1 Myocardial infarction type 2; I95.1 Orthostatic hypotension; E78.5 Hyperlipidemia, unspecified; G25.2 Other specified forms of tremor; G47.00 Insomnia, unspecified; M81.0 Age-related osteoporosis without current pathological fracture; M19.90 Unspecified osteoarthritis, unspecified site; R79.89 Other specified abnormal findings of blood chemistry; Z87.891 Personal history of nicotine dependence; Z79.899 Other long term (current) drug therapy; Z91.048 Other nonmedicinal substance allergy status
CPT/HCPCS: 71045; 76942; 78451; 80053 ×3; 80061; 82553; 83690; 83735; 84443; 84484 ×3; 85025; 93005; 93306; 93458; 94760 ×3; 96360; 96361 ×3; 97139 ×2; A9500; C1769; G0378 ×4; 36415; 99152; J1644; J2001; J2250; J3010; Q9967

== ENCOUNTER 2019-07-26 11:35 | Outpatient (CLI) | payer MEDICARE, BC ==
--- NOTE | 2019-07-26 12:17 | RAD ---
CERVICAL SPINE SERIES 3 VIEWS: HISTORY: Neck pain. FINDINGS: Vertebral bodies are normal in height. Severe degenerative disk narrowing at C5-6 and C6-7. There a re also moderate degenerative facet changes present. IMPRESSION: Marked arthritic changes of the lower cervical spine. POS: TPC
== END 2019-07-26 11:36 | disposition home or self-care (01) ==
LOC: BICRAD 11:35
PROVIDERS: ATTEND Family Medicine
DX: M54.2 Cervicalgia (principal); M46.92 Unspecified inflammatory spondylopathy, cervical region
CPT/HCPCS: 72040

== ENCOUNTER 2019-10-31 06:20 | Outpatient (CLI) | payer MEDICARE, BC, OTHER ==
[2019-11-01 13:47] LABS: SARS-CoV-2 MS2 Positive; SARS-CoV-2 N Gene Negative; SARS-CoV-2 S Gene Negative; SARS-CoV-2 orf1ab Negative
== END 2019-10-31 06:21 | disposition home or self-care (01) ==
LOC: LABBT 06:20
PROVIDERS: ATTEND Neurological Surgery
DX: Z01.812 Encounter for preprocedural laboratory examination (principal); Z11.59 Encounter for screening for other viral diseases; M54.12 Radiculopathy, cervical region
CPT/HCPCS: 87635; U0003

== ENCOUNTER 2019-11-02 07:01 | Day surgery (SDC) | payer MEDICARE, BC ==
[2019-10-28 12:57] VITALS: BMI 17.9
--- NOTE | 2019-11-01 15:35 | HP ---
HISTORY OF PRESENT ILLNESS: Ms. Nguyen is a very pleasant 79-year-old woman, who is known to us for prior evaluation and actually planned surgery for lumbar spinal issue, which she still has to this day, but needed to cancel secondary to an eye problem. Over that time course, she has actually developed a secondary problem, which is more severe, which fits cervical radiculopathy, neck pain, and bilateral upper extremity pain that fits a combination of both C6 and C7 discomfort. She has been treating this with pain medications and with injections with Dr. Cox's office. Unfortunately, they have not completely relieved her symptoms and she continues to struggle quite significantly with her pains. PAST MEDICAL HISTORY: Significant for no major medical problems. MEDICATIONS: No medications listed. ALLERGIES: NO KNOWN DRUG ALLERGIES. PHYSICAL EXAMINATION: The patient is alert and oriented x3. Cervical range of motion is restricted. Bilateral upper extremity strength is equal. DIAGNOSTIC STUDIES: MRI of the cervical spine reveals foraminal stenosis of ggwajips-oq-nwxfek quality at C5-C6 and C6-C7 matching her symptoms well. ASSESSMENT: Cervical radiculopathy. PLAN: Dr. Andersen met with the patient, reviewed imaging, and advocated for a C5 through C7 ACDF. He explained to the patient the risks, benefits, and alternatives to the procedure. The patient expressed understanding and elected to move forward with surgery as discussed. I do believe that the patient is mentally competent and capable of making medical decisions for herself. We will move forward with surgery as planned. Job ID: [id number]
[2019-11-02] MEDS ORDERED: EPINEPHrine 1 MG/ML AMP ONE (07:48)
[2019-11-02] MEDS ORDERED: Thrombin 5000 UNITS/5 ML VIAL ONE (07:48)
[2019-11-02] MEDS ORDERED: Bupivacaine PF 0.5% 30 ML VIAL ONE (07:48)
[2019-11-02] MEDS ORDERED: Fentanyl 100 MCG/2 ML VIAL ONE ×3 (08:59→11:20)
[2019-11-02] MEDS ORDERED: SUGAMMADEX SODIUM 200 MG/2 ML VIAL ONE (10:01)
--- NOTE | 2019-11-02 10:49 | OP ---
DATE OF PROCEDURE: 11/02/2019 RN EMERGENCY: Deangelo Kwok PA-C. INDICATION: Pain. DIAGNOSIS: Cervical radiculopathy. PROCEDURE PERFORMED: Anterior cervical diskectomy and fusion, C6-C7. ANESTHESIA: General. DESCRIPTION OF PROCEDURE: The patient was brought into the operating room and placed under general anesthesia. She was placed on table in a supine position. A transverse incision was planned over the lateral aspect of the neck on the right. After prepping and draping and after an appropriate preoperative pause, the incision was created. The underlying platysma muscles were identified and incised. The blunt tissue plane anterior to the sternocleidomastoid muscle was used to gain access to the prevertebral space. Self-retaining retractors were placed in the wound for optimal exposure. After confirming the appropriate level with C-arm fluoroscopy, an annulotomy was performed at the C6-C7 disk space. All disk material as well as anterior and posterior osteophytes were removed. After completing the decompression, a 6-mm lordotic PEEK cage packed with allograft and autograft material were placed within the interbody space. An anterior cervical plate was then fashioned to the front of the spine and secured with a total of 4 fixed screws. Midline and lateral structures were inspected and found to be free from significant trauma. The wound was irrigated. Hemostasis was maintained throughout. The wound was then closed in anatomic layers and a pressure dressing was applied. There were no known procedural complications. Job ID: [id number]
[2019-11-02] MEDS ORDERED: Rocuronium Bromide 10 MG/ML (10ML VIAL) ONE (11:54)
[2019-11-02] MEDS ORDERED: PROPOFOL 200 MG/20 ML VIAL ONE (11:54)
[2019-11-02] MEDS ORDERED: Dexamethasone 20 MG/5 ML VIAL ONE (11:54)
[2019-11-02] MEDS ORDERED: Ondansetron PF 4 MG/2 ML Vial ONE (11:54)
[2019-11-02] MEDS ORDERED: Lidocaine 1% PF 5 ML VIAL ONE (11:54)
[2019-11-02] MEDS ORDERED: tiZANidine HCl 4 MG TAB ONE (12:28)
== END 2019-11-02 13:30 | disposition home or self-care (01) ==
LOC: SDC 07:01
PROVIDERS: ATTEND Neurological Surgery
PROC: 0RG10A0 Fusion of Cervical Vertebral Joint with Interbody Fusion Device, Anterior Approach, Anterior Column, Open Approach (ICD-10-PCS; principal; 2019-11-02)
PROC: 0RT30ZZ Resection of Cervical Vertebral Disc, Open Approach (ICD-10-PCS; 2019-11-02)
DX: M54.12 Radiculopathy, cervical region (principal); M48.02 Spinal stenosis, cervical region; E78.5 Hyperlipidemia, unspecified; M81.0 Age-related osteoporosis without current pathological fracture; L71.9 Rosacea, unspecified; Z79.899 Other long term (current) drug therapy; Z91.048 Other nonmedicinal substance allergy status
CPT/HCPCS: 76000; C1776; J0171; J0690; J1100; J2001; J2405; J2704; J3010; S0020

== ENCOUNTER 2019-12-02 10:28 | Outpatient (CLI) | payer MEDICARE, BC ==
--- NOTE | 2019-12-02 11:37 | CT ---
CT HEAD WITHOUT IV CONTRAST COMPARISON: 07/02/2018 HISTORY: Headache and head pressure when laying down. Patient fell and hit head one year ago. TECHNIQUE: Axial CT imaging at 5 mm intervals from vertex through skull base without contrast FINDINGS: There is decreased attenuation in the periventricular white matter which is nonspecific but likely re flective of chronic small vessel ischemic changes. There is mild cerebral volume loss. The ventricular system is normal in size, shape, and position for the degree of sulcal atrophy. There is no evidence of an acute infarction, hemorrhage, mass effect, or midline shift. Visualized paranasal sinuses are clear. Osseous structures appear intact. CT head is stable compared to prior exam. IMPRESSION: 1. Stable CT head without acute intracranial abnormality demonstrated. 2. Chronic small vessel ischemic changes and cerebral volume loss.
== END 2019-12-02 10:29 | disposition home or self-care (01) ==
LOC: TBSIIMAG 10:28
PROVIDERS: ATTEND Neurological Surgery
DX: R51 Headache (principal); G93.89 Other specified disorders of brain
CPT/HCPCS: 70450

== ENCOUNTER 2020-01-14 16:17 | Inpatient (IN) | payer MEDICARE, BC, OTHER ==
[2020-01-14] MEDS ORDERED: Acetaminophen 500 MG TAB ONE (16:54)
[2020-01-14 17:38] LABS: Hemoglobin 13.9 g/dL (12.0-16.0); Mean Corpuscular HGB CONC 31.8 g/dL (32.0-36.0); Mean Corpuscular Hemoglobin 31.2 pg (27.0-31.0); Mean Corpuscular Volume 98.1 fL (78.0-98.0); Mean Platelet Volume 9.4 fL (7.4-10.4); Platelet Count 250 thou/uL (130-400); Red Blood Cell (RBC) Count 4.44 mill/uL (4.20-5.40); White Blood Cell (WBC) Count 27.9 thou/uL (4.8-10.8)
[2020-01-14 17:55] LABS: Band 22 % (5-11); Lymphocytes 6 % (21-51); MDiff Complete? YES; Monocytes 5 % (0-10); Neutrophil 67 % (42-75); Platelet Morphology Comment Appears Adequate; RBC Morphology Normal; Vacuoles SLIGHT
[2020-01-14 17:55] LABS: Bacteria/HPF 4+ HPF (None Seen); Bilirubin Negative (Negative); Blood, Urine 3+ (Negative); Clarity Turbid (Clear); Glucose, Urine (Dipstick) Normal (Negative); Ketone, Urine Negative (Negative); Leukocyte 500 Leu/uL (Negative); Nitrite Negative (Negative); Protein, Urine (Dipstick) 50 mg/dL (Neg-Trace); RBC/HPF 21-50 HPF (0-3); Specific Gravity, Urine 1.014 (1.002-1.036); Urobilinogen Normal mg/dL (Less than 2); WBC/HPF Greater than 50 HPF (0-3); pH, Urine 6.5 (5.0-9.0)
[2020-01-14 17:56] LABS: ALT (SGPT) 25 U/L (8-55); AST (SGOT) 46 U/L (5-34); Alkaline Phosphatase 96 U/L (40-110); Anion Gap 20 mmol/L (10-20); BUN (Urea Nitrogen) 43 mg/dL (9.8-20.1); Bilirubin, Total 0.3 mg/dL (0.2-1.2); CK (CPK) 710 U/L (29-168); Calc. Creatinine Clearance 0 mL/min (70-130); Calcium 9.5 mg/dL (7.8-10.44); Carbon Dioxide 22 mmol/L (23-31); Chloride 97 mmol/L (98-107); Estimated GFR-MDRD 25; Globulin 3.2 g/dL (2.4-3.5); Glucose 90 mg/dL (83-110); Magnesium 2.1 mg/dL (1.6-2.6); Potassium 4.7 mmol/L (3.5-5.1); Protein, Total 7.2 g/dL (6.0-8.3); Sodium 134 mmol/L (136-145)
--- NOTE | 2020-01-14 18:03 | RAD ---
PORTABLE CHEST: 01/14/20 HISTORY: Chest pain. COMPARISON: 06/06/19 exam. Heart size is upper limits. There are atherosclerotic changes of the aorta. The lungs are clear of an y infiltrate. IMPRESSION: No active intrathoracic disease. POS: OFF
[2020-01-14] MEDS ORDERED: Sodium Chloride 0.9% 100 ML ONE (19:06)
[2020-01-14] MEDS ORDERED: Vancomycin 1 GM/200 ML BAG ONE (19:06)
[2020-01-14] MEDS ORDERED: cefTRIAXone\\ROCEPHIN 2 GM VIAL ONE (19:06)
[2020-01-14] MEDS ORDERED: Acetaminophen 325 MG TAB PO PRN (19:42)
[2020-01-14] MEDS ORDERED: Ondansetron ODT 4 MG TAB PO PRN (19:42)
[2020-01-14 20:28] LABS: #Basophils 0.1 thou/uL (0.0-0.2); #Lymphocytes 1.6 thou/uL (1.20-3.40); #Monocytes 1.7 thou/uL (0.11-0.59); #Neutrophils 20.3 thou/uL (1.40-6.50); %Basophils 0.2 % (0.0-1.0); %Eosinophils 0.1 % (0.0-10.0); %Lymphocytes 6.6 % (21.0-51.0); %Monocytes 7.2 % (0.0-10.0); %Neutrophils 85.8 % (42.0-75.0); Hemoglobin 11.5 g/dL (12.0-16.0); Mean Corpuscular HGB CONC 31.1 g/dL (32.0-36.0); Mean Corpuscular Hemoglobin 31.3 pg (27.0-31.0); Mean Platelet Volume 9.1 fL (7.4-10.4); Platelet Count 214 thou/uL (130-400); RBC Distribution Width 14.1 % (11.5-14.5); Red Blood Cell (RBC) Count 3.66 mill/uL (4.20-5.40); White Blood Cell (WBC) Count 23.7 thou/uL (4.8-10.8)
[2020-01-14 20:58] LABS: ALT (SGPT) 17 U/L (8-55); AST (SGOT) 30 U/L (5-34); Alkaline Phosphatase 60 U/L (40-110); Anion Gap 15 mmol/L (10-20); BUN (Urea Nitrogen) 35 mg/dL (9.8-20.1); Bilirubin, Total 0.2 mg/dL (0.2-1.2); Calc. Creatinine Clearance 0 mL/min (70-130); Calcium 7.8 mg/dL (7.8-10.44); Carbon Dioxide 16 mmol/L (23-31); Chloride 106 mmol/L (98-107); Estimated GFR-MDRD 32; Globulin 2.9 g/dL (2.4-3.5); Glucose 136 mg/dL (83-110); Potassium 3.8 mmol/L (3.5-5.1); Protein, Total 5.9 g/dL (6.0-8.3); Sodium 133 mmol/L (136-145)
--- NOTE | 2020-01-14 20:58 | PDOC.EVN ---
Event Note - Event Note Event Note: [id number] HP
[2020-01-14] MEDS: Sodium Chloride 0.9% 1,000 ML IV SCH (23:34)
[2020-01-15 00:03] VITALS: BMI 19.1
[2020-01-15] MEDS: Zolpidem Tartrate 5 MG TAB PO PRN ×2 (00:36→22:22)
--- NOTE | 2020-01-15 02:08 | HP ---
CHIEF COMPLAINT: Weakness and generalized body aches. HISTORY OF PRESENT ILLNESS: Ms. Nguyen is a 79-year-old female with past medical history of colitis, hyperlipidemia, chronic pain, among others, presented to the emergency room with generalized body aches and weakness. The patient had a fall 4 days ago and she has been having pain in her lower extremities and her neck. She went to her pain specialist and had an injection in the back of her head? and since then she has not been feeling well. She also had fever and chills. Workup in the emergency room, patient was found to have urinary tract infection, was found to be septic. The patient septic workup done in the ED. The patient started on IV antibiotics. PAST MEDICAL HISTORY: 1. Colitis. 2. Hyperlipidemia. 3. Chronic pain. PAST SURGICAL HISTORY: 1. Bilateral mastectomy. 2. Appendectomy. 3. Hysterectomy. 4. Bladder surgery. SOCIAL HISTORY: The patient is a former cigarette smoker. Denies alcohol drinking, denies drug use. FAMILY HISTORY: Reviewed and noncontributory. ALLERGIES: ALLERGIC TO ADHESIVE TAPE. CURRENT MEDICATIONS: See home medication reconciliation form for updated medications. REVIEW OF SYSTEMS: Review of 14 systems negative except what is mentioned in history of present illness. PHYSICAL EXAMINATION: GENERAL: The patient is awake, alert, in mild distress. VITAL SIGNS: Blood pressure is 120/60, pulse is 101, temperature is 101.2, respiratory rate is 18. HEAD AND NECK: Normocephalic, atraumatic. NECK: Supple. No JVD. CHEST: Fair bilateral air entry. HEART: S1, S2. Regular. ABDOMEN: Soft. Mild lower abdomen tenderness. Bowel sounds present. NEUROLOGIC: Awake, alert, oriented x3. No focal deficits. PSYCHIATRIC: Unable to assess. EXTREMITIES: No clubbing or cyanosis. LABORATORY DATA: WBC count is 23.7, hemoglobin 11.5, platelets 214. Lactic acid is 2.8. Urinalysis is positive for bacteria, WBCs, leukocyte, but it does show 4 to 6 squamous cells and turbid. Sodium is 134, potassium is 4.7, BUN is 43, creatinine 1.9. WBC count is 27.9, hemoglobin 13.9, platelets 250. Chest x-ray, no acute finding. ASSESSMENT AND PLAN: 1. Sepsis secondary to acute urinary tract infection. 2. Chronic pain disorder. 3. Recent fall. 4. Acute kidney injury?.. 5. Hyperlipidemia. PLAN: 1. Admit. 2. Septic workup including urine cultures. 3. IV antibiotics. 4. IV fluids. 5. Monitor kidney function and urine output. 6. Reconcile home medications. 7. DVT prophylaxis as appropriate. 8. Expected length of stay, 2 midnights or more. Job ID: [id number]
[2020-01-15 05:35] LABS: #Basophils 0.1 thou/uL (0.0-0.2); #Lymphocytes 1.7 thou/uL (1.20-3.40); #Neutrophils 17.8 thou/uL (1.40-6.50); %Basophils 0.3 % (0.0-1.0); %Eosinophils 0.2 % (0.0-10.0); %Monocytes 9.3 % (0.0-10.0); %Neutrophils 82.2 % (42.0-75.0); Hemoglobin 10.7 g/dL (12.0-16.0); Mean Corpuscular HGB CONC 30.6 g/dL (32.0-36.0); Mean Corpuscular Hemoglobin 30.7 pg (27.0-31.0); Mean Platelet Volume 8.4 fL (7.4-10.4); Platelet Count 212 thou/uL (130-400); RBC Distribution Width 13.9 % (11.5-14.5); White Blood Cell (WBC) Count 21.6 thou/uL (4.8-10.8)
[2020-01-15 05:57] LABS: Anion Gap 12 mmol/L (10-20); BUN (Urea Nitrogen) 29 mg/dL (9.8-20.1); Calc. Creatinine Clearance 30 mL/min (70-130); Calcium 7.8 mg/dL (7.8-10.44); Carbon Dioxide 20 mmol/L (23-31); Chloride 109 mmol/L (98-107); Estimated GFR-MDRD 47; Glucose 116 mg/dL (83-110); Potassium 4.1 mmol/L (3.5-5.1); Sodium 137 mmol/L (136-145)
[2020-01-15] MEDS: Cefepime 2 GM in Sodium Chloride 0.9% 100 ML IVPB SCH ×2 (09:00→20:42)
[2020-01-15 11:45] LABS: SARS-CoV-2 MS2 Positive; SARS-CoV-2 N Gene Negative; SARS-CoV-2 S Gene Negative; SARS-CoV-2 by NAA Not Detected (NotDetected); SARS-CoV-2 orf1ab Negative
[2020-01-15] MEDS ORDERED: ACETAMINOPHEN WITH CODEINE PO PRN (11:58)
[2020-01-15] MEDS ORDERED: HYDROcodone/Acetaminophen 5/325 mg Tablet PO PRN (12:29)
--- NOTE | 2020-01-15 13:29 | PDOC.HOSPP ---
- Subjective Encounter Date: 01/15/20 Encounter Time: 10:20 Subjective: Patient states that she is aching all over her body. Did with the sepsis secondary to UTI. WBC trending down urine culture growing Enterobacter TWIN. Patient is on vancomycin and cefepime. - Objective Vital Signs & Weight: Vital Signs (12 hours) Temp Pulse Resp BP BP Pulse Ox 01/15/20 12:16 100.2 F H 101 H 16 149/69 H 95 01/15/20 07:33 98.8 F 91 16 121/67 97 01/15/20 04:00 97.8 F 91 18 135/81 97 Weight Weight 104 lb 6 oz I&O: 01/14/20 01/15/20 01/16/20 06:59 06:59 06:59 Intake Total 750 Balance 750 Result Diagrams: 01/15/20 05:19 01/15/20 05:19 Hospitalist ROS - Medication Medications: Active Medications Generic Name Dose Route Start Last Admin Trade Name Freq PRN Reason Stop Dose Admin Hydrocodone Bitart/Acetaminophen 1 tab 01/15/20 12:29 01/15/20 12:40 Ararat 5/325 PO 1 tab Q4H PRN Administration Moderate Pain (4-6) Sodium Chloride 1,000 mls @ 75 mls/hr 01/14/20 19:45 01/14/20 23:34 Normal Saline 0.9% IV 1,000 mls .[id number] DESMOND Administration Cefepime HCl 2 gm/ Sodium 100 mls @ 200 mls/hr 01/15/20 08:00 01/15/20 09:00 Chloride IVPB 100 mls 0800,2000 DESMOND Administration Zolpidem Tartrate 10 mg 01/15/20 00:25 01/15/20 00:36 Ambien PO 10 mg HS PRN Administration insomnia - Exam General Appearance: NAD, awake alert Eye: PERRL ENT: normocephalic atraumatic Neck: supple Heart: RRR, normal peripheral pulses Respiratory: CTAB, normal chest expansion Gastrointestinal: soft, normal bowel sounds Neurological: cranial nerve grossly intact, no focal deficits Psychiatric: A&O x 3 Hosp A/P - Plan Sepsis secondary to urinary tract infection Blood cultures negative so far Urine culture growing enterococcus Continue with Vanco and cefepime Once the sensitivity is back will de-escalate antibiotics. Chronic pain disorder Giving Ararat here. We will see how she does in terms of pain control. History of fall -Need physical therapy consult will place that once she is more stable. Acute kidney injury -Creatinine trending down. Leukocytosis White count improved from 27 to 21,000.
[2020-01-15] MEDS: Sodium Chloride 0.9% 1,000 ML IV SCH ×2 (13:32→22:21)
[2020-01-15 18:53] LABS: Vancomycin, Random 5.3 ug/mL (See Comment)
[2020-01-15] MEDS ORDERED: Vancomycin 1 GM in Premix Bag 1 BAG IVPB SCH ×2 (19:15→20:00)
[2020-01-15] MEDS ORDERED: Simvastatin 10 MG TAB PO SCH (21:00)
[2020-01-16] MEDS ORDERED: Lorazepam 2 MG/ML VIAL SLOW IVP SCH (04:30)
[2020-01-16] MEDS ORDERED: Propranolol HCl 20 MG TAB PO SCH (09:00)
[2020-01-16] MEDS: Cefepime 2 GM in Sodium Chloride 0.9% 100 ML IVPB SCH (09:10)
[2020-01-16 11:26] VITALS: BP 136/68; TEMP 98.2
--- NOTE | 2020-01-17 09:24 | DIS ---
DATE OF ADMISSION: 01/14/2020 DATE OF DISCHARGE: DISCHARGE DIAGNOSES: 1. Sepsis secondary to urinary tract infection. 2. Chronic pain disorder, on Jerome. 3. History of fall. 4. Acute kidney injury, resolved. 5. Leukocytosis, improved. DISCHARGE MEDICATIONS: Home medications plus Cipro 250 mg twice a day for 7 days. This morning, the patient looks little confused. She is very stubborn in going home. Sitter was at bedside. As she is l not completely disoriented, ambulating, we contacted her son. He is at bedside. He is comfortable with taking her home and watch her closely. The son lives an hour from her home; however, he will be with her for the time being. She is hemodynamically stable. PHYSICAL EXAMINATION: VITAL SIGNS: On the day of discharge, temperature 98.1, pulse 96, blood pressure 151/77. GENERAL: She is alert and oriented x2. CARDIOVASCULAR: Regular rate and rhythm without murmurs, rubs, or gallops. She denies any pain. LUNGS: Clear to auscultation. ABDOMEN: No flank tenderness or abdominal tenderness. Bowel sounds positive. EXTREMITIES: No known pitting edema. HOSPITAL COURSE: This is an 80-year-old female admitted with sepsis secondary to urinary tract infection. She also has a history of fall. She does seems to have a chronic pain and depends on Jerome, which is also contributing to her falls. Her blood culture is negative. Urine culture grew Enterobacter aerogenes and sensitive to Cipro, Bactrim, as well as cephalosporins group. Urine culture growing Enterobacter aerogenes, which is sensitive to Cipro and cephalosporin groups. DISCHARGE INSTRUCTIONS: Activity as tolerated. Regular diet. Follow up with the primary care physician in 1 week. TIME SPENT: Discharge time took over 45 minutes including conversation with the patient as well as with her son about the discharge plan and further care. Job ID: [id number] [facility]
--- NOTE | 2020-01-17 14:35 | EKG ---
Test Reason : Blood Pressure : / mmHG Vent. Rate : 113 BPM Atrial Rate : 113 BPM P-R Int : 168 ms QRS Dur : 072 ms QT Int : 314 ms P-R-T Axes : 047 001 073 degrees QTc Int : 430 ms Sinus tachycardia Possible Left atrial enlargement Anterior infarct , age undetermined Abnormal ECG Confirmed by HESHAM MEZA DO ([id number]), video effects editor KARLA MATHEWS ([id number]) on 01/17/2020 2:34:23 PM Referred By: Confirmed By:HESHAM MEZA DO
== END 2020-01-16 11:26 | disposition home or self-care (01) | DRG 872 ==
LOC: ERS 16:17 → T4-B 20:58
PROVIDERS: ADMIT Internal Medicine; ATTEND Internal Medicine
DX: A41.89 Other specified sepsis (principal); N39.0 Urinary tract infection, site not specified; N17.9 Acute kidney failure, unspecified; G89.29 Other chronic pain; E78.5 Hyperlipidemia, unspecified; Z91.81 History of falling; Z90.13 Acquired absence of bilateral breasts and nipples; Z90.49 Acquired absence of other specified parts of digestive tract; Z90.710 Acquired absence of both cervix and uterus; Z87.891 Personal history of nicotine dependence; Z91.048 Other nonmedicinal substance allergy status; Z79.891 Long term (current) use of opiate analgesic
CPT/HCPCS: 36415; 71045; 80048; 80053; 80202; 81003; 81015; 82550; 83605; 83735; 84443; 84484; 85025; 87040; 87077; 87086; 87186; 87635; 93005; J0692; J0696; J2060; J3370; J3490; U0003

== ENCOUNTER 2020-01-30 14:41 | Outpatient (CLI) | payer MEDICARE, BC ==
--- NOTE | 2020-01-30 15:17 | BD ---
EXAM: Bone densitometry using DEXA HISTORY: 80 yo female. Screening for postmenopausal osteoporosis FINDINGS: L1--bone mineral density 0.723 g/sq cm; T score -2.4 ; Z score -0.1 L2--bone mineral density 0.793 g/sq cm; T score -2.1 ; Z score 0.5 L3--bone mineral density 0.798 g/sq cm; T score -2.6 ; Z score 0.2 L4--bone mineral density 0.805 g/sq cm; T score -2.3 ; Z score 0.5 Total L1-L4--bone mineral density 0.782 g/sq cm; T score -2.4 ; Z score 0.3 Left femoral neck--bone mineral density0.578; T score -2.4 ; Z score -0.1 Total proximal left femur--bone mineral density 0.801; T score -1.2 ; Z score 0.9 The 10 year fracture risk for a major osteoporotic fracture is 14% and for a hip fracture is 4.9%. IMPRESSION: Osteopenia
== END 2020-01-30 14:42 | disposition home or self-care (01) ==
LOC: BICMAMMO 14:41
PROVIDERS: ATTEND Family Medicine
DX: Z13.820 Encounter for screening for osteoporosis (principal); Z78.0 Asymptomatic menopausal state; M85.89 Other specified disorders of bone density and structure, multiple sites
CPT/HCPCS: 77080

== ENCOUNTER 2020-02-24 10:23 | Outpatient (CLI) | payer MEDICARE, BC ==
--- NOTE | 2020-02-24 11:55 | MRI ---
MRI lumbar spine noncontrast: HISTORY: Fall 2-3 weeks ago. Persistent pain. COMPARISON: 08/02/2018 FINDINGS: Appropriate T1 marrow signal intensity of the lumbar vertebra. Lumbar spine vertebral body heights ar e maintained. No fracture. Stable straightening of lumbar lordosis. No significant STIR hyperintensity to suggest vertebral body edema or ligamentous injury. 2 mm of anterolisthesis of L2 upon L3. Appropriate signal intensity in the visualized paraspinal muscles and solid organs. Conus medullaris terminates at the mid L1 level. Incidental left renal cortical cyst is noted. T12-L1:Adequate disc hydration. No posterior disc abnormality. No significant central canal stenosis or significant neural foraminal narrowing. L1-L2:Adequate disc hydration. Broad-based disc bulge abuts the thecal sac. There is ligamentum flavu m thickening and facet hypertrophy. There is fluid in both facet joints. There is mild central canal stenosis. Mild bilateral neural foraminal narrowing. L2-L3:Disc desiccation with mild loss of disc space height. Broad-based disc bulge, ligamentum flavum thickening and facet hypertrophy result in mild central canal stenosis. Narrowing of bilateral subarticular zones with partial obscuration of bilateral traversing L4 nerve roots. Mild right and le ft neural foraminal narrowing. L3-L4:Disc desiccation with mild loss of disc space height. Broad-based disc bulge abuts the thecal s ac. Narrowing of both subarticular zones with partial obscuration of the traversing bilateral L4 nerve root. There is ligamentum flavum thickening and facet hypertrophy. Fluid in both facet joints. Overall there is mild central canal stenosis. Mild to moderate bilateral neural foraminal narrowing. L4-L5:Disc desiccation with central disc herniation. Mild central canal stenosis. Narrowing of the le ft and right subarticular zone secondary to disc material. Partial obscuration of the traversing left L5 nerve root. There is fluid in both facet joints. Mild to moderate bilateral foraminal narrowi ng. L5-S1:Adequate disc hydration. Central disc herniation abuts the thecal sac. No significant central c anal stenosis. Mild right and ecpm-lv-[id number] left neural foraminal narrowing. IMPRESSION: Degenerative changes of the lumbar spine as described above. When compared to the previous examinatio n, no significant interval change. Transcribed Date/Time: 02/24/2020 12:17 PM
--- NOTE | 2020-02-24 12:00 | RAD ---
LUMBAR SPINE 3 VIEWS: Date: 02/24/2020 Lateral views obtained in neutral, flexion, and extension. INDICATION: Intervertebral disc disorder with radiculopathy. COMPARISON: 06/24/2018. FINDINGS: Lumbar vertebra maintain height. Slight anterolisthesis at the L2-3 level is noted. Disc spaces are p reserved. Mild degenerative spurring is stable. Mild facet hypertrophy is again noted. The slight anterolisthesis at L2-3 appears to correct slightly with extension. No significant change with flexion. IMPRESSION: Mild anterolisthesis at L2-3. Mild to moderate degenerative changes as described. POS: AGW
== END 2020-02-24 10:24 | disposition home or self-care (01) ==
LOC: TBSIIMAG 10:23
PROVIDERS: ATTEND Nurse Practitioner Family
DX: M51.16 Intervertebral disc disorders with radiculopathy, lumbar region (principal); M47.26 Other spondylosis with radiculopathy, lumbar region; M43.16 Spondylolisthesis, lumbar region
CPT/HCPCS: 72100; 72148

== ENCOUNTER 2020-02-25 11:56 | Emergency (ER) | payer MEDICARE, BC ==
[2020-02-25] MEDS ORDERED: traMADol HCl 50 MG TAB ONE (13:08)
[2020-02-25 13:50] LABS: Bilirubin Negative (Negative); Blood, Urine Negative (Negative); Clarity Clear (Clear); Glucose, Urine (Dipstick) Normal (Negative); Ketone, Urine Negative (Negative); Leukocyte 250 Leu/uL (Negative); Nitrite Negative (Negative); Protein, Urine (Dipstick) 10 mg/dL (Neg-Trace); Specific Gravity, Urine 1.015 (1.002-1.036); Squamous Epithelial 0-3 HPF (0-3); Urobilinogen Normal mg/dL (Less than 2); WBC/HPF 21-50 HPF (0-3); pH, Urine 5.5 (5.0-9.0)
[2020-02-25 13:55] LABS: #Basophils 0.1 thou/uL (0.0-0.2); #Eosinphils 0.2 thou/uL (0.0-0.7); #Lymphocytes 2.8 thou/uL (1.20-3.40); #Monocytes 0.6 thou/uL (0.11-0.59); #Neutrophils 5.5 thou/uL (1.40-6.50); %Basophils 1.2 % (0.0-1.0); %Eosinophils 2.5 % (0.0-10.0); %Lymphocytes 30.5 % (21.0-51.0); %Monocytes 6.6 % (0.0-10.0); %Neutrophils 59.1 % (42.0-75.0); Hemoglobin 13.9 g/dL (12.0-16.0); Mean Corpuscular Volume 97.1 fL (78.0-98.0); Mean Platelet Volume 7.6 fL (7.4-10.4); Platelet Count 525 thou/uL (130-400); RBC Distribution Width 13.6 % (11.5-14.5); Red Blood Cell (RBC) Count 4.34 mill/uL (4.20-5.40); White Blood Cell (WBC) Count 9.3 thou/uL (4.8-10.8)
[2020-02-25 14:01] LABS: Bacteria/HPF 1+ HPF (None Seen); Transitional Epithelial 0-3 HPF (None Seen)
--- NOTE | 2020-02-25 14:03 | CT ---
CT HEAD WITHOUT CONTRAST: 02/25/20 INDICATIONS: Headache. COMPARISON: Comparison made to head CT of 12/02/19. There are chronic ischemic white matter changes which are stable. No mass, infarct, hemorrhage, or ot her acute process. Paranasal sinuses remain clear. IMPRESSION: Stable head CT. No acute process or interval change. POS: AGW
[2020-02-25 14:21] LABS: ALT (SGPT) 19 U/L (8-55); AST (SGOT) 19 U/L (5-34); Albumin 3.8 g/dL (3.4-4.8); Alkaline Phosphatase 83 U/L (40-110); Anion Gap 15 mmol/L (10-20); BUN (Urea Nitrogen) 36 mg/dL (9.8-20.1); Bilirubin, Total 0.3 mg/dL (0.2-1.2); Calc. Creatinine Clearance 0 mL/min (70-130); Calcium 9.9 mg/dL (7.8-10.44); Carbon Dioxide 18 mmol/L (23-31); Chloride 106 mmol/L (98-107); Estimated GFR-MDRD 24; Globulin 3.8 g/dL (2.4-3.5); Glucose 85 mg/dL (83-110); Potassium 4.8 mmol/L (3.5-5.1); Protein, Total 7.6 g/dL (6.0-8.3); Sodium 134 mmol/L (136-145)
--- NOTE | 2020-02-25 14:28 | CT ---
CT CERVICAL SPINE: 02/25/20 INDICATIONS: Neck pain. Comparison made to cervical spine films of 07/26/19. Postoperative changes are now noted. Anterior fusion procedure has been performed with anterior plate and screws transfixing C6-7 with interbody implant. Prominent degenerative changes at C5-6 with loss of disc space, spurring, and posterior spondylosis. Minimal anterolisthesis at C3-4 and C4-5. Mild disc bulge and spondylosis at C3-4 and C4-5 mildly effaces the anterior subarachnoid space. No s ignificant central canal or foraminal stenosis. C5-6: Posterior spondylosis abuts the anterior cord. Bilateral foraminal stenosis at this level more severe on the right. C6-7: Postoperative changes. Mild bilateral foraminal stenosis slightly more prominent on the left. N o significant central canal stenosis. C7-T1: No significant central canal or foraminal stenosis. IMPRESSION: Postoperative and degenerative changes of the cervical spine as described. POS: DAYANNA
== END 2020-02-25 14:59 | disposition home or self-care (01) ==
LOC: ERS 11:56
DX: R51.9 Headache, unspecified (principal); M54.2 Cervicalgia; E86.0 Dehydration; Z87.891 Personal history of nicotine dependence; Z79.899 Other long term (current) drug therapy
CPT/HCPCS: 36415; 70450; 72125; 80053; 81003; 81015; 85025; 87086; 93005

== ENCOUNTER 2020-04-25 09:43 | Outpatient (CLI) | payer MEDICARE, BC ==
--- NOTE | 2020-04-25 12:57 | ULT ---
ULTRASOUND ABDOMEN: Date: 04/25/2020 HISTORY: 80-year-old female with recurrent UTIs. FINDINGS: There is a 1.0 cm cyst in the left lobe of the liver. No abnormal biliary ductal dilatation is seen. The common duct measures 6.0 mm in diameter. No gallstones, gallbladder wall thickening, or perichole cystic fluid is seen. The pancreas, spleen, right kidney, and visualized portions of the aorta and IV C are unremarkable. There are three cysts in the left kidney measuring 9, 10, and 12 mm, respectively . No hydronephrosis is seen on either side. No free fluid is identified. IMPRESSION: 1. Small left liver lobe cyst. 2. Left renal cysts. 3. No evidence of cholelithiasis. POS: AH
--- NOTE | 2020-04-25 12:59 | ULT ---
LIMITED PELVIC ULTRASOUND: Date: 04/25/2020 HISTORY: Recurrent UTIs. Ovaries and uterus removed 50+ years ago. FINDINGS/IMPRESSION: The patient is status post hysterectomy and bilateral salpingo-oophorectomy. No mass or free fluid is seen in the pelvis. POS: AH
== END 2020-04-25 09:44 | disposition home or self-care (01) ==
LOC: BICULT 09:43
PROVIDERS: ATTEND Family Medicine
DX: N39.0 Urinary tract infection, site not specified (principal); N28.1 Cyst of kidney, acquired; K76.89 Other specified diseases of liver; Z90.710 Acquired absence of both cervix and uterus; Z90.722 Acquired absence of ovaries, bilateral
CPT/HCPCS: 76857; 93975

== ENCOUNTER 2020-06-25 11:08 | Emergency (ER) | payer MEDICARE, BC ==
[2020-06-25 17:00] LABS: Bilirubin Negative (Negative); Blood, Urine Large (Negative); Clarity Turbid (Clear); Glucose, Urine (Dipstick) Negative (Negative); Ketone, Urine Negative (Negative); Leukocyte Trace (Negative); Nitrite Negative (Negative); Protein, Urine (Dipstick) Unable to Interpret mg/dL (Neg-Trace); Urobilinogen 0.2 mg/dL (Less than 2)
[2020-06-25 17:01] LABS: RBC/HPF Greater than 50 HPF (0-3); Specific Gravity, Urine 1.012 (1.002-1.036)
[2020-06-25 17:03] LABS: Bacteria/HPF None Seen HPF (None Seen)
[2020-06-25 19:23] LABS: Anion Gap 13 mmol/L (10-20); BUN (Urea Nitrogen) 19 mg/dL (9.8-20.1); Calc. Creatinine Clearance 0 mL/min (70-130); Carbon Dioxide 21 mmol/L (23-31); Chloride 112 mmol/L (98-107); Glucose 76 mg/dL (83-110); Potassium 3.9 mmol/L (3.5-5.1); Sodium 142 mmol/L (136-145)
[2020-06-25 20:18] LABS: #Basophils 0.1 thou/uL (0.0-0.2); #Eosinphils 0.2 thou/uL (0.0-0.7); #Monocytes 0.8 thou/uL (0.11-0.59); #Neutrophils 4.3 thou/uL (1.40-6.50); %Basophils 0.8 % (0.0-1.0); %Eosinophils 2.9 % (0.0-10.0); %Lymphocytes 27.1 % (21.0-51.0); %Monocytes 10.9 % (0.0-10.0); %Neutrophils 58.3 % (42.0-75.0); Hemoglobin 14.2 g/dL (12.0-16.0); Mean Corpuscular HGB CONC 31.9 g/dL (32.0-36.0); Mean Corpuscular Hemoglobin 32.2 pg (27.0-31.0); Mean Platelet Volume 7.8 fL (7.4-10.4); Platelet Count 266 thou/uL (130-400); RBC Distribution Width 12.6 % (11.5-14.5); Red Blood Cell (RBC) Count 4.41 mill/uL (4.20-5.40); White Blood Cell (WBC) Count 7.4 thou/uL (4.8-10.8)
== END 2020-06-25 14:32 | disposition home or self-care (01) ==
LOC: ERS 11:08
DX: R31.9 Hematuria, unspecified (principal); I10 Essential (primary) hypertension
CPT/HCPCS: 80048; 81003; 81015; 85025; 87086

== ENCOUNTER 2020-08-03 14:00 | Outpatient (CLI) | payer MEDICARE, BC ==
[2020-08-04 02:52] LABS: SARS-CoV-2 PCR by NAA Not Detected (NotDetected)
== END 2020-08-03 14:01 | disposition home or self-care (01) ==
LOC: LABBT 14:00
PROVIDERS: ATTEND Neurological Surgery
DX: Z01.812 Encounter for preprocedural laboratory examination (principal); M48.062 Spinal stenosis, lumbar region with neurogenic claudication; Z20.822 Contact with and (suspected) exposure to COVID-19
CPT/HCPCS: U0003; U0005; 87635

== ENCOUNTER 2020-08-08 05:44 | Day surgery (SDC) | payer MEDICARE, BC ==
[2020-08-07 09:38] VITALS: BMI 17.4
[2020-08-08] MEDS ORDERED: Bupivacaine PF 0.5% 30 ML VIAL ONE (06:23)
[2020-08-08] MEDS ORDERED: EPINEPHrine 1 MG/ML AMP ONE (06:23)
[2020-08-08] MEDS ORDERED: Thrombin 5000 UNITS/5 ML VIAL ONE (06:23)
[2020-08-08] MEDS ORDERED: Fentanyl 100 MCG/2 ML VIAL ONE (06:24)
[2020-08-08] MEDS ORDERED: PROPOFOL 200 MG/20 ML VIAL ONE (07:05)
[2020-08-08] MEDS ORDERED: Glycopyrrolate 0.2 MG/ML 5 ML SYRINGE ONE (07:05)
[2020-08-08] MEDS ORDERED: Lidocaine 1% PF 5 ML VIAL ONE (07:05)
[2020-08-08] MEDS ORDERED: ePHEDrine 50 MG/ML VIAL ONE (07:05)
[2020-08-08] MEDS ORDERED: Dexamethasone 20 MG/5 ML VIAL ONE (07:05)
[2020-08-08] MEDS ORDERED: Ondansetron PF 4 MG/2 ML Vial ONE (07:05)
[2020-08-08] MEDS ORDERED: Rocuronium Bromide 10 MG/ML (10ML VIAL) ONE (07:05)
[2020-08-08] MEDS ORDERED: Morphine 2 MG/ML VIAL ONE (09:27)
[2020-08-08] MEDS ORDERED: HYDROcodone/Acetaminophen 5/325 mg Tablet ONE (10:40)
== END 2020-08-08 11:35 | disposition home or self-care (01) ==
LOC: SDC 05:44
PROVIDERS: ATTEND Neurological Surgery
PROC: 0SB20ZZ Excision of Lumbar Vertebral Disc, Open Approach (ICD-10-PCS; principal; 2020-08-08)
PROC: 01NB0ZZ Release Lumbar Nerve, Open Approach (ICD-10-PCS; 2020-08-08)
DX: M54.16 Radiculopathy, lumbar region (principal); M48.061 Spinal stenosis, lumbar region without neurogenic claudication; I25.10 Atherosclerotic heart disease of native coronary artery without angina pectoris; I10 Essential (primary) hypertension; G89.4 Chronic pain syndrome; K21.9 Gastro-esophageal reflux disease without esophagitis; E78.5 Hyperlipidemia, unspecified; M81.0 Age-related osteoporosis without current pathological fracture; Z87.891 Personal history of nicotine dependence; Z79.899 Other long term (current) drug therapy; Z91.048 Other nonmedicinal substance allergy status
CPT/HCPCS: 63047; 76000; J2270; J0171; J0690; J1100; J2405; J2704; J3010; J3490; S0020

== ENCOUNTER 2020-09-26 00:51 | Emergency (ER) | payer MEDICARE, BC ==
[2020-09-26 01:28] LABS: #Basophils 0.1 thou/uL (0.0-0.2); #Eosinphils 0.2 thou/uL (0.0-0.7); #Lymphocytes 2.4 thou/uL (1.20-3.40); #Monocytes 1.1 thou/uL (0.11-0.59); #Neutrophils 5.5 thou/uL (1.40-6.50); %Eosinophils 1.9 % (0.0-10.0); %Lymphocytes 26.1 % (21.0-51.0); %Monocytes 12.1 % (0.0-10.0); %Neutrophils 58.9 % (42.0-75.0); Hemoglobin 11.9 g/dL (12.0-16.0); Mean Corpuscular HGB CONC 31.2 g/dL (32.0-36.0); Mean Corpuscular Hemoglobin 31.2 pg (27.0-31.0); Mean Platelet Volume 7.9 fL (7.4-10.4); Platelet Count 232 thou/uL (130-400); RBC Distribution Width 12.1 % (11.5-14.5); Red Blood Cell (RBC) Count 3.82 mill/uL (4.20-5.40); White Blood Cell (WBC) Count 9.3 thou/uL (4.8-10.8)
[2020-09-26 01:40] LABS: Bacteria/HPF 1+ HPF (None Seen); Bilirubin Negative (Negative); Blood, Urine Negative (Negative); Clarity Clear (Clear); Glucose, Urine (Dipstick) Normal (Negative); Ketone, Urine Negative (Negative); Leukocyte 25 Leu/uL (Negative); Mucous/LPF Rare LPF (<2+); Nitrite Negative (Negative); Protein, Urine (Dipstick) Negative (Neg-Trace); RBC/HPF 0-3 HPF (0-3); Specific Gravity, Urine 1.016 (1.002-1.036); Squamous Epithelial None Seen HPF (0-3); Urobilinogen Normal mg/dL (Less than 2); WBC/HPF 0-3 HPF (0-3); pH, Urine 6.5 (5.0-9.0)
[2020-09-26 01:51] LABS: ALT (SGPT) 11 U/L (8-55); AST (SGOT) 13 U/L (5-34); Albumin 3.4 g/dL (3.4-4.8); Alkaline Phosphatase 55 U/L (40-110); Anion Gap 11 mmol/L (10-20); BUN (Urea Nitrogen) 15 mg/dL (9.8-20.1); Bilirubin, Total Less than 0.2 mg/dL (0.2-1.2); Calc. Creatinine Clearance 0 mL/min (70-130); Calcium 8.9 mg/dL (7.8-10.44); Carbon Dioxide 21 mmol/L (23-31); Chloride 113 mmol/L (98-107); Globulin 2.7 g/dL (2.4-3.5); Glucose 76 mg/dL (83-110); Potassium 4.2 mmol/L (3.5-5.1); Protein, Total 6.1 g/dL (5.8-8.1); Sodium 141 mmol/L (136-145)
== END 2020-09-26 03:18 | disposition home or self-care (01) ==
LOC: ERS 00:51
DX: F03.90 Unspecified dementia, unspecified severity, without behavioral disturbance, psychotic disturbance, mood disturbance, and anxiety (principal); Z87.891 Personal history of nicotine dependence
CPT/HCPCS: 36415; 51701; 80053; 81003; 81015; 85025

== ENCOUNTER 2022-05-31 12:18 | Inpatient (IN) | payer MEDICARE, BC ==
[~2022-05-31 12:18] MED LIST changes: +Iopamidol-370 76% 500 ML 1 ML ONE; -Lidocaine 1% PF 5 ML VIAL ONE; -Ondansetron HCl/PF 4 MG/2 ML Vial ONE; -PHENYLEPHRINE-NS 100 MCG/ML 10 ML SYRINGE ONE; -PROPOFOL 200 MG/20 ML VIAL ONE
[2022-05-31] MEDS ORDERED: Ondansetron PF 4 MG/2 ML Vial ONE (13:01)
[2022-05-31] MEDS ORDERED: Acetaminophen 500 MG TAB ONE (13:01)
[2022-05-31 13:05] LABS: #Basophils 0.1 thou/uL (0.0-0.2); #Eosinphils 0.1 thou/uL (0.0-0.7); #Monocytes 0.7 thou/uL (0.11-0.59); #Neutrophils 7.8 thou/uL (1.40-6.50); %Basophils 0.6 % (0.0-1.0); %Eosinophils 0.9 % (0.0-10.0); %Lymphocytes 19.1 % (21.0-51.0); %Monocytes 6.5 % (0.0-10.0); Hemoglobin 12.7 g/dL (12.0-16.0); Mean Corpuscular Hemoglobin 32.3 pg (27.0-31.0); Mean Platelet Volume 8.4 fL (7.4-10.4); Platelet Count 390 10x3/uL (130-400); RBC Distribution Width 11.8 % (11.5-14.5); Red Blood Cell (RBC) Count 3.92 mill/uL (4.20-5.40); White Blood Cell (WBC) Count 10.6 10x3/uL (4.8-10.8)
[2022-05-31 13:25] LABS: ALT (SGPT) 16 U/L (8-55); AST (SGOT) 18 U/L (5-34); Albumin 3.6 g/dL (3.4-4.8); Alkaline Phosphatase 49 U/L (40-110); Anion Gap 18 mmol/L (10-20); BUN (Urea Nitrogen) 16 mg/dL (9.8-20.1); Bilirubin, Total 0.4 mg/dL (0.2-1.2); Calc. Creatinine Clearance 0 mL/min (70-130); Calcium 9.3 mg/dL (7.8-10.44); Carbon Dioxide 20 mmol/L (23-31); Chloride 105 mmol/L (98-107); Estimated GFR 49; Globulin 3.1 g/dL (2.4-3.5); Glucose 85 mg/dL (83-110); Potassium 4.3 mmol/L (3.5-5.1); Protein, Total 6.7 g/dL (5.8-8.1); Sodium 139 mmol/L (136-145)
[2022-05-31 14:56] LABS: Bacteria/HPF 4+ HPF (None Seen); Bilirubin Negative (Negative); Blood, Urine 1+ (Negative); Clarity Turbid (Clear); Glucose, Urine (Dipstick) Normal (Negative); Ketone, Urine 40 mg/dL (Negative); Leukocyte 500 Leu/uL (Negative); Nitrite 2+ (Negative); Protein, Urine (Dipstick) 10 mg/dL (Neg-Trace); Specific Gravity, Urine 1.013 (1.002-1.036); Urobilinogen Normal mg/dL (Less than 2); WBC/HPF Greater than 50 HPF (0-3); pH, Urine 5.5 (5.0-9.0)
[2022-05-31] MEDS ORDERED: Meropenem 1 GM in Sodium Chloride 0.9% 100 ML IVPB SCH (17:30)
[2022-05-31 18:36] VITALS: BMI 20.6
[2022-05-31] MEDS ORDERED: Bisacodyl 5 MG TAB PO PRN (18:38)
[2022-05-31] MEDS ORDERED: Acetaminophen 325 MG TAB PO PRN (18:38)
[2022-05-31] MEDS: Sodium Chloride 0.9% 1,000 ML IV SCH (22:19)
[2022-05-31] MEDS: cefTRIAXone\\ROCEPHIN 1 GM in Sodium Chloride 0.9% 100 ML IVPB SCH (22:20)
[2022-05-31] MEDS: Ondansetron PF 4 MG/2 ML Vial IVP PRN (23:01)
[2022-06-01 05:28] LABS: #Basophils 0.1 thou/uL (0.0-0.2); #Lymphocytes 1.6 thou/uL (1.20-3.40); #Monocytes 0.7 thou/uL (0.11-0.59); %Basophils 0.6 % (0.0-1.0); %Eosinophils 0.4 % (0.0-10.0); %Lymphocytes 17.2 % (21.0-51.0); %Monocytes 7.7 % (0.0-10.0); %Neutrophils 74.1 % (42.0-75.0); Hemoglobin 10.9 g/dL (12.0-16.0); Mean Corpuscular HGB CONC 31.7 g/dL (32.0-36.0); Mean Corpuscular Hemoglobin 32.2 pg (27.0-31.0); Mean Platelet Volume 8.4 fL (7.4-10.4); Platelet Count 371 10x3/uL (130-400); RBC Distribution Width 11.7 % (11.5-14.5); Red Blood Cell (RBC) Count 3.38 mill/uL (4.20-5.40); White Blood Cell (WBC) Count 9.4 10x3/uL (4.8-10.8)
[2022-06-01 05:44] LABS: Anion Gap 16 mmol/L (10-20); BUN (Urea Nitrogen) 9 mg/dL (9.8-20.1); Calc. Creatinine Clearance 43 mL/min (70-130); Calcium 8.3 mg/dL (7.8-10.44); Carbon Dioxide 20 mmol/L (23-31); Chloride 110 mmol/L (98-107); Estimated GFR 72; Glucose 75 mg/dL (83-110); Sodium 142 mmol/L (136-145)
[2022-06-01] MEDS ORDERED: Zolpidem Tartrate 5 MG TAB PO PRN (08:47)
[2022-06-01] MEDS ORDERED: Estrogen,Ester/Me-Testosterone 0.625 mg/1.25 mg Tablet PO SCH (09:00)
[2022-06-01] MEDS ORDERED: Glucosamine Chondroitin Cap PO SCH (09:00)
[2022-06-01] MEDS ORDERED: tiZANidine HCl 4 MG TAB PO PRN (09:08)
[2022-06-01] MEDS: Propranolol 10 MG TAB PO SCH (09:51)
[2022-06-01] MEDS: Cholecalciferol 1,000 UNITS (25 MCG) TAB PO SCH (09:51)
[2022-06-01] MEDS: Multivit, Therapeutic 1 TAB PO SCH (09:51)
[2022-06-01] MEDS: Cyanocobalamin (Vitamin B-12) 1,000 MCG TAB PO SCH (09:51)
[2022-06-01] MEDS: Folic Acid 1 MG TAB PO SCH (09:51)
[2022-06-01] MEDS: traMADol HCl 50 MG TAB PO PRN ×2 (14:52→21:17)
[2022-06-01] MEDS: Ondansetron PF 4 MG/2 ML Vial IVP PRN ×2 (14:52→21:08)
[2022-06-01] MEDS: Sodium Chloride 0.9% 1,000 ML IV SCH (18:15)
[2022-06-01] MEDS: cefTRIAXone\\ROCEPHIN 1 GM in Sodium Chloride 0.9% 100 ML IVPB SCH (18:16)
[2022-06-01] MEDS ORDERED: Amitriptyline HCl 25 MG TAB PO SCH (21:00)
[2022-06-01] MEDS ORDERED: OXcarbazepine 150 MG TAB PO SCH (21:00)
[2022-06-01] MEDS ORDERED: Topiramate 25 MG TAB PO SCH (21:00)
[2022-06-01] MEDS ORDERED: Simvastatin 10 MG TAB PO SCH (21:00)
[2022-06-01] MEDS ORDERED: Calcitonin,Salmon,Synthetic 200 Units 3.7 ML PUMP EA NARE SCH (21:00)
[2022-06-02 03:58] VITALS: TEMP 98.2
[2022-06-02] MEDS ORDERED: [UNRECOGNIZED DRUG - OTHER] PO SCH (09:00)
[2022-06-02] MEDS ORDERED: ESTERIFIED ESTROGENS PO SCH (09:00)
[2022-06-02] MEDS: Sodium Chloride 0.9% 1,000 ML IV SCH (09:24)
[2022-06-02] MEDS: Cyanocobalamin (Vitamin B-12) 1,000 MCG TAB PO SCH (09:25)
[2022-06-02] MEDS: Folic Acid 1 MG TAB PO SCH (09:25)
[2022-06-02] MEDS: Propranolol 10 MG TAB PO SCH (09:25)
[2022-06-02] MEDS: Multivit, Therapeutic 1 TAB PO SCH (09:25)
[2022-06-02] MEDS: Cholecalciferol 1,000 UNITS (25 MCG) TAB PO SCH (09:26)
[2022-06-02] MEDS ORDERED: Cefdinir 300 MG CAP PO SCH ×3 (10:00→21:00)
[2022-06-02 12:54] VITALS: BP 140/62
== END 2022-06-02 13:35 | disposition home or self-care (01) | DRG 690 ==
LOC: ERS 12:18 → INTOOBSV 15:49 → 2SW 15:49 → ERS 18:19 → OBSVTOIN 06-02 11:49
PROVIDERS: ADMIT Internal Medicine; ATTEND Internal Medicine
DX: N39.0 Urinary tract infection, site not specified (principal); Z16.11 Resistance to penicillins; Z16.24 Resistance to multiple antibiotics; N15.1 Renal and perinephric abscess; Z20.822 Contact with and (suspected) exposure to COVID-19; B96.21 Shiga toxin-producing Escherichia coli [E. coli] [STEC] O157 as the cause of diseases classified elsewhere; Z79.899 Other long term (current) drug therapy; Z90.49 Acquired absence of other specified parts of digestive tract; Z90.710 Acquired absence of both cervix and uterus; Z87.891 Personal history of nicotine dependence
CPT/HCPCS: 36415; 74177; 80048; 80053; 81003; 81015; 83605; 84484; 85025; 87040; 87077; 87086; 87186; 93005; 96361; 96367; 96372; 96374; 96375; 96376; G0378; J0696; J1650; J2185; J2405; J3490; J7050; Q9967; U0003; U0005

== ENCOUNTER 2022-06-30 00:10 | Inpatient (IN) | payer MEDICARE, BC ==
[2022-06-30 01:07] LABS: #Basophils 0.1 thou/uL (0.0-0.2); #Eosinphils 0.2 thou/uL (0.0-0.7); #Lymphocytes 2.1 thou/uL (1.20-3.40); #Monocytes 0.8 thou/uL (0.11-0.59); #Neutrophils 5.7 thou/uL (1.40-6.50); %Basophils 0.8 % (0.0-1.0); %Lymphocytes 23.4 % (21.0-51.0); %Monocytes 9.1 % (0.0-10.0); %Neutrophils 64.6 % (42.0-75.0); Hemoglobin 10.9 g/dL (12.0-16.0); Mean Corpuscular HGB CONC 32.6 g/dL (32.0-36.0); Mean Corpuscular Hemoglobin 32.7 pg (27.0-31.0); Mean Platelet Volume 8.3 fL (7.4-10.4); Platelet Count 329 10x3/uL (130-400); RBC Distribution Width 13.2 % (11.5-14.5); Red Blood Cell (RBC) Count 3.35 mill/uL (4.20-5.40); White Blood Cell (WBC) Count 8.9 10x3/uL (4.8-10.8)
[2022-06-30 01:26] LABS: ALT (SGPT) 10 U/L (8-55); AST (SGOT) 15 U/L (5-34); Alkaline Phosphatase 49 U/L (40-110); Anion Gap 6 mmol/L (10-20); BUN (Urea Nitrogen) 9 mg/dL (9.8-20.1); Bilirubin, Total 0.2 mg/dL (0.2-1.2); Calc. Creatinine Clearance 0 mL/min (70-130); Calcium 9.1 mg/dL (7.8-10.44); Carbon Dioxide 25 mmol/L (23-31); Chloride 111 mmol/L (98-107); Estimated GFR 48; Globulin 2.7 g/dL (2.4-3.5); Glucose 99 mg/dL (83-110); Potassium 4.3 mmol/L (3.5-5.1); Protein, Total 5.7 g/dL (5.8-8.1); Sodium 138 mmol/L (136-145)
[2022-06-30 01:29] LABS: Bacteria/HPF None Seen HPF (None Seen); Bilirubin Negative (Negative); Blood, Urine Trace (Negative); Clarity Clear (Clear); Glucose, Urine (Dipstick) Normal (Negative); Ketone, Urine Negative (Negative); Leukocyte 75 Leu/uL (Negative); Nitrite Negative (Negative); Protein, Urine (Dipstick) Negative (Neg-Trace); Specific Gravity, Urine 1.025 (1.002-1.036); Squamous Epithelial None Seen HPF (0-3); Urobilinogen Normal mg/dL (Less than 2); pH, Urine 5.5 (5.0-9.0)
[2022-06-30] MEDS ORDERED: Acetaminophen 650 MG Suppository PR PRN (04:52)
[2022-06-30] MEDS ORDERED: Senokot S 8.6-50 MG TAB PO PRN (04:52)
[2022-06-30] MEDS ORDERED: Dextrose 5%-Lactated Ringers 1,000 ML IV SCH (05:00)
[2022-06-30 06:39] VITALS: BMI 19.1
[2022-06-30] MEDS ORDERED: TESTOSTERONE PO SCH (09:00)
[2022-06-30] MEDS ORDERED: ESTROGEN ESTER PO SCH (09:00)
[2022-06-30] MEDS: Folic Acid 1 MG TAB PO SCH (09:44)
[2022-06-30] MEDS: Famotidine 20 MG TAB PO SCH (09:44)
[2022-06-30] MEDS: Cyanocobalamin (Vitamin B-12) 1,000 MCG TAB PO SCH (09:44)
[2022-06-30] MEDS: Propranolol 10 MG TAB PO SCH (09:44)
[2022-06-30] MEDS: Cholecalciferol 1,000 UNITS (25 MCG) TAB PO SCH (09:44)
[2022-06-30] MEDS: HYDROcodone/Acetaminophen 5/325 mg Tablet PO PRN (09:48)
[2022-06-30] MEDS ORDERED: FLU VACC QS2022-23(65YR UP)/PF 240 MCG/0.7 ML SYRINGE IM ONE (14:00)
[2022-06-30] MEDS: Acetaminophen 325 MG TAB PO PRN (15:44)
[2022-06-30] MEDS: Ondansetron ODT 4 MG TAB PO PRN (18:12)
[2022-06-30] MEDS ORDERED: hydrALAZINE 20 MG/ML VIAL SLOW IVP PRN (18:16)
[2022-06-30] MEDS ORDERED: Morphine 2 MG/ML VIAL SLOW IVP PRN (18:16)
[2022-06-30] MEDS ORDERED: Ondansetron PF 4 MG/2 ML Vial IVP PRN (18:16)
[2022-06-30] MEDS: Topiramate 25 MG TAB PO SCH (20:56)
[2022-06-30] MEDS: Sulfameth/Trimethoprim DS 800-160mg TAB PO SCH (20:56)
[2022-06-30] MEDS: OXcarbazepine 150 MG TAB PO SCH (20:57)
[2022-06-30] MEDS: Simvastatin 10 MG TAB PO SCH (20:57)
[2022-07-01] MEDS: HYDROcodone/Acetaminophen 5/325 mg Tablet PO PRN (03:08)
[2022-07-01] MEDS: traMADol HCl 50 MG TAB PO PRN ×3 (05:25→21:37)
[2022-07-01 06:00] LABS: ALT (SGPT) 12 U/L (8-55); AST (SGOT) 17 U/L (5-34); Albumin 3.6 g/dL (3.4-4.8); Alkaline Phosphatase 62 U/L (40-110); Anion Gap 12 mmol/L (10-20); BUN (Urea Nitrogen) 8 mg/dL (9.8-20.1); Bilirubin, Total 0.4 mg/dL (0.2-1.2); Calc. Creatinine Clearance 29 mL/min (70-130); Calcium 9.3 mg/dL (7.8-10.44); Carbon Dioxide 21 mmol/L (23-31); Chloride 106 mmol/L (98-107); Estimated GFR 48; Globulin 3.1 g/dL (2.4-3.5); Glucose 78 mg/dL (83-110); Magnesium 1.6 mg/dL (1.6-2.6); Potassium 4.1 mmol/L (3.5-5.1); Protein, Total 6.7 g/dL (5.8-8.1); Sodium 135 mmol/L (136-145)
[2022-07-01] MEDS: Ondansetron ODT 4 MG TAB PO PRN (06:50)
[2022-07-01] MEDS: Cyanocobalamin (Vitamin B-12) 1,000 MCG TAB PO SCH (09:12)
[2022-07-01] MEDS: Folic Acid 1 MG TAB PO SCH (09:12)
[2022-07-01] MEDS: Famotidine 20 MG TAB PO SCH (09:12)
[2022-07-01] MEDS: Sulfameth/Trimethoprim DS 800-160mg TAB PO SCH ×2 (09:12→21:34)
[2022-07-01] MEDS: Cholecalciferol 1,000 UNITS (25 MCG) TAB PO SCH (09:12)
[2022-07-01] MEDS: Propranolol 10 MG TAB PO SCH (09:12)
[2022-07-01] MEDS: OXcarbazepine 150 MG TAB PO SCH (21:34)
[2022-07-01] MEDS: Simvastatin 10 MG TAB PO SCH (21:34)
[2022-07-01] MEDS: Amitriptyline HCl 25 MG TAB PO SCH (21:34)
[2022-07-01] MEDS: Topiramate 25 MG TAB PO SCH (21:34)
[2022-07-01] MEDS: Melatonin 3 MG TAB PO PRN (21:37)
[2022-07-02 07:42] LABS: #Basophils 0.1 thou/uL (0.0-0.2); #Eosinphils 0.1 thou/uL (0.0-0.7); #Monocytes 0.9 thou/uL (0.11-0.59); #Neutrophils 4.4 thou/uL (1.40-6.50); %Basophils 1.3 % (0.0-1.0); %Lymphocytes 26.6 % (21.0-51.0); %Monocytes 11.5 % (0.0-10.0); %Neutrophils 58.6 % (42.0-75.0); Hemoglobin 13.2 g/dL (12.0-16.0); Mean Corpuscular Hemoglobin 32.3 pg (27.0-31.0); Mean Platelet Volume 8.5 fL (7.4-10.4); Platelet Count 393 10x3/uL (130-400); RBC Distribution Width 13.6 % (11.5-14.5); Red Blood Cell (RBC) Count 4.09 mill/uL (4.20-5.40); White Blood Cell (WBC) Count 7.5 10x3/uL (4.8-10.8)
[2022-07-02 08:06] LABS: Anion Gap 13 mmol/L (10-20); BUN (Urea Nitrogen) 12 mg/dL (9.8-20.1); Calc. Creatinine Clearance 23 mL/min (70-130); Calcium 9.4 mg/dL (7.8-10.44); Carbon Dioxide 20 mmol/L (23-31); Chloride 106 mmol/L (98-107); Estimated GFR 37; Glucose 81 mg/dL (83-110); Potassium 4.2 mmol/L (3.5-5.1); Sodium 135 mmol/L (136-145)
[2022-07-02] MEDS: Folic Acid 1 MG TAB PO SCH (08:34)
[2022-07-02] MEDS: Cyanocobalamin (Vitamin B-12) 1,000 MCG TAB PO SCH (08:34)
[2022-07-02] MEDS: Propranolol 10 MG TAB PO SCH (08:34)
[2022-07-02] MEDS: Sulfameth/Trimethoprim DS 800-160mg TAB PO SCH ×2 (08:35→20:55)
[2022-07-02] MEDS: Cholecalciferol 1,000 UNITS (25 MCG) TAB PO SCH (08:35)
[2022-07-02] MEDS: Sodium Chloride 0.9% 1,000 ML IV SCH ×2 (10:51→20:56)
[2022-07-02] MEDS: Topiramate 25 MG TAB PO SCH (20:54)
[2022-07-02] MEDS: OXcarbazepine 150 MG TAB PO SCH (20:54)
[2022-07-02] MEDS: Amitriptyline HCl 25 MG TAB PO SCH (20:55)
[2022-07-02] MEDS: Melatonin 3 MG TAB PO PRN (20:55)
[2022-07-02] MEDS: Simvastatin 10 MG TAB PO SCH (20:55)
[2022-07-02] MEDS: Acetaminophen 325 MG TAB PO PRN (20:56)
[2022-07-03 06:15] LABS: #Eosinphils 0.2 thou/uL (0.0-0.7); #Lymphocytes 1.8 thou/uL (1.20-3.40); #Neutrophils 4.4 thou/uL (1.40-6.50); %Basophils 0.4 % (0.0-1.0); %Eosinophils 2.5 % (0.0-10.0); %Lymphocytes 23.7 % (21.0-51.0); %Monocytes 13.6 % (0.0-10.0); %Neutrophils 59.9 % (42.0-75.0); Hemoglobin 12.3 g/dL (12.0-16.0); Mean Corpuscular HGB CONC 31.8 g/dL (32.0-36.0); Mean Corpuscular Hemoglobin 31.7 pg (27.0-31.0); Mean Corpuscular Volume 99.4 fl (78.0-98.0); Mean Platelet Volume 8.7 fL (7.4-10.4); Platelet Count 344 10x3/uL (130-400); RBC Distribution Width 13.6 % (11.5-14.5); Red Blood Cell (RBC) Count 3.88 mill/uL (4.20-5.40); White Blood Cell (WBC) Count 7.4 10x3/uL (4.8-10.8)
[2022-07-03 06:44] LABS: Anion Gap 11 mmol/L (10-20); BUN (Urea Nitrogen) 14 mg/dL (9.8-20.1); Calc. Creatinine Clearance 23 mL/min (70-130); Calcium 8.8 mg/dL (7.8-10.44); Carbon Dioxide 20 mmol/L (23-31); Chloride 110 mmol/L (98-107); Estimated GFR 38; Glucose 82 mg/dL (83-110); Potassium 3.9 mmol/L (3.5-5.1); Sodium 137 mmol/L (136-145)
[2022-07-03] MEDS: Folic Acid 1 MG TAB PO SCH (08:30)
[2022-07-03] MEDS: Cholecalciferol 1,000 UNITS (25 MCG) TAB PO SCH (08:30)
[2022-07-03] MEDS: Propranolol 10 MG TAB PO SCH (08:30)
[2022-07-03] MEDS: Cyanocobalamin (Vitamin B-12) 1,000 MCG TAB PO SCH (08:31)
[2022-07-03] MEDS: Sulfameth/Trimethoprim DS 800-160mg TAB PO SCH (08:31)
[2022-07-03] MEDS: Sodium Chloride 0.9% 1,000 ML IV SCH ×2 (17:51→17:58)
[2022-07-03] MEDS: Amitriptyline HCl 25 MG TAB PO SCH (20:00)
[2022-07-03] MEDS: Simvastatin 10 MG TAB PO SCH (20:00)
[2022-07-03] MEDS: Topiramate 25 MG TAB PO SCH (20:00)
[2022-07-03] MEDS: OXcarbazepine 150 MG TAB PO SCH (20:00)
[2022-07-03] MEDS: Melatonin 3 MG TAB PO PRN (20:05)
[2022-07-04] MEDS ORDERED: Melatonin 3 MG TAB PO SCH (01:00)
[2022-07-04 06:34] LABS: Hemoglobin 11.8 g/dL (12.0-16.0); Mean Corpuscular HGB CONC 31.8 g/dL (32.0-36.0); Mean Corpuscular Hemoglobin 31.7 pg (27.0-31.0); Mean Corpuscular Volume 99.8 fl (78.0-98.0); Mean Platelet Volume 8.6 fL (7.4-10.4); Platelet Count 302 10x3/uL (130-400); RBC Distribution Width 13.5 % (11.5-14.5); Red Blood Cell (RBC) Count 3.71 mill/uL (4.20-5.40)
[2022-07-04 06:48] LABS: Anion Gap 8 mmol/L (10-20); BUN (Urea Nitrogen) 13 mg/dL (9.8-20.1); Calc. Creatinine Clearance 29 mL/min (70-130); Calcium 7.5 mg/dL (7.8-10.44); Carbon Dioxide 18 mmol/L (23-31); Chloride 115 mmol/L (98-107); Estimated GFR 48; Glucose 73 mg/dL (83-110); Potassium 3.6 mmol/L (3.5-5.1); Sodium 137 mmol/L (136-145)
[2022-07-04 07:02] LABS: Band 3 % (5-11); Lymphocytes 18 % (21-51); MDiff Complete? YES; Monocytes 15 % (0-10); Neutrophil 63 % (42-75)
[2022-07-04 08:28] VITALS: BP 159/82; TEMP 98.2
[2022-07-04] MEDS: Propranolol 10 MG TAB PO SCH (08:36)
[2022-07-04] MEDS: Cyanocobalamin (Vitamin B-12) 1,000 MCG TAB PO SCH (08:36)
[2022-07-04] MEDS: Cholecalciferol 1,000 UNITS (25 MCG) TAB PO SCH (08:36)
[2022-07-04] MEDS: Folic Acid 1 MG TAB PO SCH (08:36)
[2022-07-04] MEDS: Sodium Chloride 0.9% 1,000 ML IV SCH (08:40)
== END 2022-07-04 15:26 | disposition home or self-care (01) | DRG 884 ==
LOC: ERS 00:10 → T4-A 06:34 → OBSVTOIN 07-02 16:59
PROVIDERS: ADMIT Internal Medicine; ATTEND Internal Medicine
DX: F03.90 Unspecified dementia, unspecified severity, without behavioral disturbance, psychotic disturbance, mood disturbance, and anxiety (principal); G93.41 Metabolic encephalopathy; N17.9 Acute kidney failure, unspecified; Z20.822 Contact with and (suspected) exposure to COVID-19; G40.909 Epilepsy, unspecified, not intractable, without status epilepticus; E78.5 Hyperlipidemia, unspecified; G47.00 Insomnia, unspecified; F39 Unspecified mood [affective] disorder; G89.29 Other chronic pain; E86.0 Dehydration; Z91.09 Other allergy status, other than to drugs and biological substances; Z87.440 Personal history of urinary (tract) infections; Z79.899 Other long term (current) drug therapy; Z90.13 Acquired absence of bilateral breasts and nipples; Z90.710 Acquired absence of both cervix and uterus; Z90.49 Acquired absence of other specified parts of digestive tract
CPT/HCPCS: 36415; 51701; 70450; 71045; 80048; 80053; 81003; 81015; 82140; 83735; 84145; 84439; 84443; 85025; 96372; 96374; G0378; J0360; J1650; J7050; Q0162; U0003; U0005

== ENCOUNTER 2024-02-04 18:34 | Emergency (ER) | payer MEDICARE ==
[2024-02-04 20:58] LABS: #Basophils 0.08 10x3/uL (0.0-0.2); %Basophils 0.9 % (0.0-1.0); %Eosinophils 2.4 % (0.0-10.0); %Lymphocytes 24.2 % (21.0-51.0); %Monocytes 7.4 % (0.0-10.0); %Neutrophils 64.8 % (42.0-75.0); Hematocrit 45.4 % (36.0-47.0); Hemoglobin 14.5 g/dL (12.0-16.0); Mean Corpuscular HGB CONC 31.9 g/dL (32.0-36.0); Mean Corpuscular Hemoglobin 31.2 pg (27.0-31.0); Mean Corpuscular Volume 97.6 fL (78.0-98.0); Mean Platelet Volume 10.6 fL (7.4-10.4); Platelet Count 280 10x3/uL (130-400); RBC Distribution Width 13.2 % (11.5-14.5); Red Blood Cell (RBC) Count 4.65 mill/uL (4.20-5.40)
[2024-02-04 21:14] LABS: ALT (SGPT) 15 U/L (8-55); AST (SGOT) 15 U/L (5-34); Albumin 3.6 g/dL (3.4-4.8); Alkaline Phosphatase 81 U/L (40-110); Anion Gap 11 mmol/L (10-20); BUN (Urea Nitrogen) 20 mg/dL (9.8-20.1); Bilirubin, Total 0.3 mg/dL (0.2-1.2); Calc. Creatinine Clearance 0 mL/min (70-130); Calcium 9.7 mg/dL (7.8-10.44); Carbon Dioxide 26 mmol/L (23-31); Chloride 106 mmol/L (98-107); Estimated GFR 46; Globulin 3.6 g/dL (2.4-3.5); Glucose 95 mg/dL (83-110); Potassium 4.2 mmol/L (3.5-5.1); Protein, Total 7.2 g/dL (5.8-8.1); Sodium 139 mmol/L (136-145)
== END 2024-02-04 23:07 | disposition home or self-care (01) ==
LOC: ERS 18:34
DX: S00.83XA Contusion of other part of head, initial encounter (principal); R41.82 Altered mental status, unspecified; Z87.891 Personal history of nicotine dependence; W19.XXXA Unspecified fall, initial encounter
CPT/HCPCS: 36415; 70450; 72125; 80053; 85025